=== PATIENT | female | born 1985 | race Caucasian/White ===

== ENCOUNTER 2025-09-23 17:18 | Emergency (ER) | payer OTHER, SELFPAY ==
--- OUTSIDE RECORDS SUMMARY | 2025-09-22 09:30 | XMS_ITS | Encounter Summary ---
Author Organization [facility] Address [address] [place] [address] Care Team Providers Care Home Care Giver Name Role Phone Viry Reyna MD Primary Care Provider [phone] Reason for Visit * Reason Comments vaginal bleeding Patient states she h as been having heavy bleeding for the last 3 weeks. Has been to the ER, was given meds and the meds made things worse, headaches, and such. Patient states she is still getting dizzy, and passing clots. Patient is scheduled for a procedure on Saturday with the SENIOR ENGINEERING MANAGER. Encounter Details Date Type Department Care Team (Late st Contact Info) Description 09/22/2025 9:30 AM RUBBER GOODS TESTER Office Visit [facility] [place] [address] [place] [address] Viry Reyna MD [address] [place] [address] Vaginal bleeding (Primary Dx); Acute blood loss anemia Social History Tobacco Use Types Packs/Day Years Used Date Smoking Tobacco: Former Cigarettes Q uit: 2020 Smokeless Tobacco: Never Alcohol Use Standard Drinks/Week Comments No 0 (1 standard drink = 0.6 oz pur e alcohol) Comments No Sex and Gender Information Value Date Recorded Sex Assigned at Not on file Legal Sex Female 3:28 AM RUBBER GOODS TESTER Gender Identity Not on file Sexual Orientation Not on file documented as of this encounter Last Filed Vital Signs Vital Sign Reading Time Taken Comments Blood Pressure 118/68 09/22/2025 9:23 AM RUBBER GOODS TESTER Pulse 61 09/22/2025 9:23 AM RUBBER GOODS TESTER Temperature 36.8 C (98.2 F) 09/22/2025 9:23 AM RUBBER GOODS TESTER Respiratory Rate 18 09/22/2025 9:23 AM RUBBER GOODS TESTER Oxygen Saturation 100% 09/22/2025 9:23 AM RUBBER GOODS TESTER Inhaled Oxygen Concentration - - Weight 88 kg (194 lb) 09/22/2025 9:23 AM RUBBER GOODS TESTER Height 162.6 cm (5' 4) 09/22/2025 9:23 AM RUBBER GOODS TESTER Body Mass Index 33.3 09/22/2025 9:23 AM RUBBER GOODS TESTER documented in this encounter Progress Notes * Viry Reyna MD - 09/22/2025 10:28 AM CST Depression Screen Positive: PHQ-2 score >= 3 or PHQ-9 score >= 9 PHQ-2 Total: 0 (09/22/2025 10:27 AM) PHQ-9 Total: 9 (09/22/2025 10:27 AM) DEPRESSION PLAN OF CARE- screen negative Positive scores attributed to symptoms likely secondary to anemia Will re evaluate in future when anemia is resolved ER GOODS TESTER * Viry Reyna MD - 09/22/2025 9:46 AM CST HISTORY OF PRESENT ILLNESS Emy Couch, a 40 y.o. female presents with a Chief Complaint of vaginal bleeding (Patient statesshe has been having heavy bleeding for the last 3 weeks. Has been to the ER, was given meds and themeds made things worse, headaches, and such. Patient states she is still getting dizzy, and passingclots. Patient is scheduled for a procedure on Saturday with the SENIOR ENGINEERING MANAGER.) Subjective HPI C/o weakness, fatigue, IBARRA- heavy periods with ongoing vaginal bleeding since 09/07 Going through 6-8 heavy/overnight pads each day/night. Notes clots. Presented to ER [facility] 09/13- US pelvis US- unremarkable: IMPRESSION: PROBABLE DEBRIS WITHIN THE ENDOMETRIAL CANAL FROM THE VAGINAL BLEEDING. NO DEFINITE UTERINE OR ENDOMETRIAL MASS. IF SYMPTOMS PERSIST, OR CONCERN WARRANTS, DIRECT ENDOMETRIAL INSPECTION AND POTENTIAL SAMPLING MAY BE INDICATED. OTHERWISE UNREMARKABLE TRANSABDOMINAL AND TRANSVAGINAL ULTRASOUND OF THE PELVIS. Lab noted anemia- 8.3/25.9 MCV 81.4 She was discharged with PRESCRIPTION for iron 325 mg qod, Provera 10 mg daily and with a scheduled appointment with SENIOR ENGINEERING MANAGER office following day SENIOR ENGINEERING MANAGER/CAFETERIA SERVER- examined her, change PRESCRIPTION to [place] and scheduled her for a D & C early next week. REVIEW OF SYSTEMS Review of Systems Constitutional: Positive for fatigue. Negative for fever. Respiratory: Positive for shortness of breath (with exertion). Cardiovascular: Negative for chest pain, palpitations and leg swelling. Gastrointestinal: Positive for abdominal pain (cramping intermittently). Genitourinary: Positive for vaginal bleeding. Neurological: Negative for weakness and light-headedness. Objective PHYSICAL EXAM BP 118/68 (BP Location: Right arm, Patient Position (BP): Sitting, BP Cuff Size: Adult) Pulse 61 Temp 98.2 ??F (36.8 ??C) (Tympanic) Resp 18 Ht 5' 4 (1.626 m) Wt 88 kg (194 lb) LMP 09/13/2025 (Approximate) SpO2 100% BMI 33.30 kg/m?? Physical Exam Constitutional: General: She is not in acute distress. Eyes: General: No scleral icterus. Cardiovascular: Rate and Rhythm: Normal rate and regular rhythm. Heart sounds: Normal heart sounds. Pulmonary: Effort: Pulmonary effort is normal. No respiratory distress. Breath sounds: Normal breath sounds. No wheezing or rales. Abdominal: General: There is no distension. Skin: Coloration: Skin is not jaundiced. Neurological: General: No focal deficit present. Mental Status: She is alert and oriented to person, place, and time. Procedures Assessment ASSESSMENT and PLAN: ICD-10-CM ICD-9-CM 1. Vaginal bleeding N93.9 623.8 D& C scheduled for 2. Acute blood loss anemia D62 285.1 Continue with iron- if able, take on empty stomach with vit C sourc for best absorption CBC WITH DIFFERENTIAL IRON, TIBC, AND PERCENT SATURATION FERRITIN CBC WITH DIFFERENTIAL FERRITIN IRON, TIBC, AND PERCENT SATURATION ER GOODS TESTER documented in this encounter Plan of Treatment Upcoming Encounters Date Type Department Care Team (Late st Contact Info) Description 10/04/2025 7:30 AM RUBBER GOODS TESTER Office Visit [facility] [address] [place] [address] Tarsha Watkins, ANP [address] [place] [address] 11/22/2025 7:30 AM RUBBER GOODS TESTER Office Visit [facility] [address] [place] [address] Tarsha Watkins, ROCCO [address] [place] [address] documented as of this encounter Procedures Procedure Name Priority Date/Time Associated Diagnosis Comments IRON, TIBC, AND PERCENT SATURATION Routine 09/22/2025 10:18 AM RUBBER GOODS TESTER Acute blood loss anemia CBC WITH DIFFERENTIAL Routine 09/22/2025 10:18 AM RUBBER GOODS TESTER Acute blood loss anemia FERRITIN Routine 09/22/2025 10:18 AM RUBBER GOODS TESTER Acute blood loss anemia documented in this encounter Results * FERRITIN (09/22/2025 10:18 AM RUBBER GOODS TESTER) FERRITIN 55 16 - 154 ng/mL [facility] Comment: Test Performed at: [facility] [address] [place] [address] Kiersten Ruelas MD Blood 09/22/2025 10:1 8 AM RUBBER GOODS TESTER 09/22/2025 10:02 PM RUBBER GOODS TESTER us Viry Reyna MD CHEMISTRY ORDERABLES Final Res ult [facility] [phone] [facility] [address] [place] [address] * (ABNORMAL) IRON, TIBC, AND PERCENT SATURATION (09/22/2025 10:18 AM RUBBER GOODS TESTER) [facility] IRON 20(L) 40 - 190 mcg/dL [facility] TIBC 362 250 - 450 mcg/dL (calc) [facility] IRON % SATURATION 6(L) 16 - 45 % (calc) [facility] Comment: Test Performed at: [address] [address] Kiersten Ruelas MD Blood 09/22/2025 10:1 8 AM RUBBER GOODS TESTER 09/22/2025 10:02 PM RUBBER GOODS TESTER us Viry Reyna MD CHEMISTRY ORDERABLES Final Res ult [facility] [phone] [address] * (ABNORMAL) CBC WITH DIFFERENTIAL (09/22/2025 10:18 AM RUBBER GOODS TESTER) [facility] WBC 4.0 3.8 - 10.8 Thousand/ uL [facility] RBC 2.52(L) 3.80 - 5.10 Million/u L [facility] HEMOGLOBIN 6.3(L) 11.7 - 15.5 g/dL [facility] Comment: Verified by repeat analysis. HEMATOCRIT 21.6(L) 35.0 - 45.0 % [facility] MCV 85.7 80.0 - 100.0 fL [facility] MCH 25.0(L) 27.0 - 33.0 pg [facility] MCHC 29.2(L) 32.0 - 36.0 g/dL [facility] Comment: For adults, a slight decrease in the calculated MCHC value (in the range of 30 to 32 g/dL) is most likely not clinically significant; however, it should be interpreted with caution in correlation with other red cell parameters and the patient's clinical condition. RDW 14.5 11.0 - 15.0 % [facility] PLATELETS 303 140 - 400 Thousand/ uL [facility] MPV 11.0 7.5 - 12.5 fL [facility] NEUTROPHIL ABSOLUTE 2,736 1,500 - 7,800 cells/uL [facility] LYMPHOCYTE ABSOLUTE 920 850 - 3,900 cells/uL [facility] MONOCYTE ABSOLUTE 292 200 - 950 cells/uL [facility] EOSINOPHIL ABSOLUTE 40 15 - 500 cells/uL [facility] BASOPHILS ABSOLUTE 12 0 - 200 cells/uL [facility] NEUTROPHIL 68.4 % [facility] LYMPHOCYTES 23.0 % [facility] MONOCYTE 7.3 % [facility] EOSINOPHILS 1.0 % [facility] BASOPHILS 0.3 % [facility] COMMENT HEMATOLOGY [facility] Comment: Review of peripheral smear confirms automated results. Anisocytosis 1 + Ovalocytes 1 + Polychromasia 1 + Review of the peripheral smear reveals adequate numbers of platelets. Test Performed at: [place] [address] [place] [address] Kiersten Becerra Blood 09/22/2025 10:1 8 AM RUBBER GOODS TESTER 09/22/2025 10:02 PM RUBBER GOODS TESTER us Viry Reyna MD HEMATOLOGY ORDERABLES Final Re sult [facility] [phone] [facility] [address] [place] [address] documented in this encounter Visit Diagnoses Diagnosis Vaginal bleeding- Primary Other specified noninflammatory disorder of vagina Acute blood loss anemia Acute posthemorrhagic anemia documented in this encounter Care Teams Home Care Giver Relationship Specialty Start Date End Date iVry Reyna MD [address] [place] [address] [place] [address] PCP - General Internal Medicine 04/22/24 documented as of this encounter
[2025-09-23] VITALS (20 sets, daily range): BP systolic 102–120; BP diastolic 54–78; PULSE 73–87; RESP 12–20; TEMP 36.7–37.3; O2SAT 97–100
--- NOTE | 2025-09-23 17:56 | ED.RECABL ---
HPI - Recheck/Abnormal Lab/Rx General Chief Complaint: Recheck/Abnormal Lab/Rx <Tracy Decker PA-C - Last Filed: 10/02/25 15:08> Stated Complaint: low hgb they said they were at 6 <Tracy Decker PA-C - Last Filed: 10/02/25 15:08> Time Seen by Provider: 09/23/25 17:56 <Tracy Decker PA-C - Last Filed: 10/02/25 15:08> Focused HPI: This is a 40 year old female that presents to the ER for low hemoglobin. Reports her hemoglobin is 6.3. This was done outpatient through her PCP. Was called today and told to come to the ER. Reports vaginal bleeding ongoing over the last couple of weeks. GENERAL: Well-appearing, well-nourished, and in no acute distress. HEAD: Normocephalic, atraumatic. CHEST: Clear to auscultation. ?No respiratory distress. HEART: Regular rate and rhythm.? NEURO: ?Alert and oriented x3. Patient screened in triage and initial orders placed.? ?Additional care and disposition to be based upon?diagnostic testing and treatment. <Tracy Decker PA-C - Last Filed: 10/02/25 15:08> History of Present Illness HPI narrative: 40-year-old female present to emergency department for evaluation for a low hemoglobin. Patient is currently going to have a D&C on 10/[address] Coreas. Patient had follow-up with her primary care physician due to her having issues with exertional fatigue. Patient had outpatient labs that showed a hemoglobin of 6.0. On re-evaluation today her hemoglobin is 5.8. Patient was started on TXA for approximately 5 days and patient is on day 2. Patient states the bleeding is still continuing but has improved significantly. <Trace Almonte MD - Last Filed: 09/23/25 22:45> Related Data Home Medications: Home Medications ?Medication ?Instructions ?Recorded ?Confirmed ?Last Taken ?Type bupropion HCl 300 mg 24 hr tablet, 300 mg PO DAILY 09/22/25 09/22/25 Unknown History extended release ferrous sulfate 325 mg (65 mg 325 mg PO EVERY OTHER DAY 09/22/25 09/22/25 Unknown History iron) tablet (FeroSul) levothyroxine 88 mcg tablet 88 mcg PO DAILY 09/22/25 09/22/25 Unknown History tirzepatide (weight loss) 5 mg/0.5 5 mg subcut WEEKLY 09/22/25 09/22/25 09/20/25 History mL subcutaneous pen injector (Zepbound) tranexamic acid 650 mg tablet 1,300 mg PO TID 09/22/25 09/22/25 09/22/25 History <Tracy Decker PA-C - Last Filed: 10/02/25 15:08> Allergies/Adverse Reactions: Allergies Allergy/AdvReac Type Severity Reaction Status Date / Time No Known Allergies Allergy Verified 09/23/25 17:42 <Tracy Decker PA-C - Last Filed: 10/02/25 15:08> Review of Systems Review of Systems: All systems reviewed & are unremarkable except as noted in HPI and below <Trace Almonte MD - Last Filed: 09/23/25 22:45> [facility] Social History Social History: Social History Smoking packs per day: 1.5 Smoking cigarettes per day: 30.0 Years smoked: 4.5 Smoking pack-years: 6.75 Smoking status: Former smoker Smoking end date: 06/11/20 Living arrangements: with friend(s) Additional living arrangements comments: S/O Spiritual care concerns: No <Tracy Decker PA-C - Last Filed: 10/02/25 15:08> Exam Narrative: APPEARANCE: Well appearing, no pain, no distress, well-nourished. HEAD: normocephalic, atraumatic. EYES: PERRLA/EOMI, conjunctivae clear. NOSE: Normal no drainage EARS:TMS clear with good light reflex. THROAT: Pharynx clear, no exudate. NECK: Supple. No adenopathy, no masses. RESPIRATORY: Airway patent, respirations nonlabored. Clear to auscultation bilaterally, no rales, rhonchi, wheezing. CARDIOVASCULAR: Regular rate and rhythm without murmurs rubs or gallops. ABDOMINAL: Soft, nontender, nondistended, normal bowel sounds MUSCULOSKELETAL: Moves all extremities. Strength/ROM intact, No edema, No calf tenderness. NEURO: Alert. Cranial nerves II through XII intact. Good gait. Good coordination SKIN: Warm, dry. Normal Color <Trace Almonte MD - Last Filed: 09/23/25 22:45> Course Vital Signs Vital signs: Vital Signs Temperature 98.0 F 09/23/25 17:38 Pulse Rate 79 09/23/25 17:38 Respiratory Rate 20 09/23/25 17:38 Blood Pressure 120/69 09/23/25 17:38 Pulse Oximetry 100 09/23/25 17:38 Oxygen Delivery Room Air 09/23/25 17:38 Temperature 98.7 F 09/23/25 23:36 Pulse Rate 77 09/23/25 23:36 Respiratory Rate 18 09/23/25 23:36 Blood Pressure 119/56 L 09/23/25 23:36 Pulse Oximetry 98 09/23/25 23:36 Oxygen Delivery Autopap 09/23/25 19:36 <Tracy Decker PA-C - Last Filed: 10/02/25 15:08> Vital Signs Temperature 98.0 F 09/23/25 17:38 Pulse Rate 79 09/23/25 17:38 Respiratory Rate 20 09/23/25 17:38 Blood Pressure 120/69 09/23/25 17:38 Pulse Oximetry 100 09/23/25 17:38 Oxygen Delivery Room Air 09/23/25 17:38 Temperature 98.7 F 09/23/25 23:36 Pulse Rate 77 09/23/25 23:36 Respiratory Rate 18 09/23/25 23:36 Blood Pressure 119/56 L 09/23/25 23:36 Pulse Oximetry 98 09/23/25 23:36 Oxygen Delivery Autopap 09/23/25 19:36 <Trace Almonte MD - Last Filed: 09/23/25 22:45> MDM - Recheck/Abnormal Lab/Rx MDM Narrative Medical decision making narrative: [age] year Old female present to the emergency department for evaluation for anemia. Case was discussed with OB Gyne and they are comfortable with patient having close follow-up as outpatient. Patient was treated with 2 units packed red blood. The patient family were updated the results of the workup planned for transfusion. All questions concerns were addressed. Critical Care Procedure Note Authorized and Performed by: Trace Almonte Total critical care time: Approximately 36 minutes Due to a high probability of clinically significant, life threatening deterioration, the patient required my highest level of preparedness to intervene emergently and I personally spent this critical care time directly and personally managing the patient. This critical care time included obtaining a history; examining the patient; pulse oximetry; ordering and review of studies; arranging urgent treatment with development of a management plan; evaluation of patient's response to treatment; frequent reassessment; and, discussions with other providers. This critical care time was performed to assess and manage the high probability of imminent, life-threatening deterioration that could result in multi-organ failure. It was exclusive of separately billable procedures and treating other patients and teaching time. Please see MDM section and the rest of the note for further information on patient assessment and treatment. <Trace Almonte MD - Last Filed: 09/23/25 22:45> Lab Data Attestation: I reviewed the patient's lab results. <Trace Almonte MD - Last Filed: 09/23/25 22:45> Result diagrams: 09/23/25 18:04 09/23/25 18:04 <Tracy Decker PA-C - Last Filed: 10/02/25 15:08> Labs: Lab Results 09/23/25 09/23/25 Range/Units 18:04 19:13 WBC 3.7 L (4.5-10.0) K/mm3 RBC 2.38 L (4.2-5.4) M/mm3 Hgb 5.9 L* (12.0-15.0) g/dL Hct 20.1 L* (37.0-47.0) % MCV 84.5 (80-100) fl MCH 24.8 L (26-34) pg MCHC 29.4 L (32-36) g/dl RDW 15.8 H (11.5-14.5) % Plt Count 262 (150-375) k/mm3 MPV 9.6 (7.4-10.4) fl Immature Gran % (Auto) 1.4 H (0-0.5) % Neut % (Auto) 63.6 (45.5-73.1) % Lymph % (Auto) 27.4 (18.3-44.2) % [place] % (Auto) 5.4 (2.6-8.5) % Eos % (Auto) 1.9 (0-4.4) % Baso % (Auto) 0.3 (0.2-1.2) % Lymph # (Auto) 1.01 (0.9-3.2) K/mm3 [place] # (Auto) 0.2 (0.1-0.6) K/mm3 Eos # (Auto) 0.1 (0-0.3) K/mm3 Baso # (Auto) 0.0 (0.0-0.1) K/mm3 Abs Immat Gran (auto) 0.05 H (0.00-0.031) K/mm3 Absolute Neuts (auto) 2.3 (1.3-6.7) K/mm3 Absolute Nucleated RBC 0.050 H (0.0-0.012) K/mm3 Band Neutrophils % Not Reportable Nucleated RBC % 1.4 H (0.0-0.2) % Platelet Estimate Adequate (Adequate) Polychromasia 1+ Hypochromasia 1+ Ovalocytes 1+ Schistocytes None seen PT 13.7 (11.1-14.7) Seconds INR 1.1 APTT 27.9 (22.3-36.8) Seconds Sodium 139 (137-145) mmol/L Potassium 3.8 (3.4-5.0) mmol/L Chloride 107 (98-107) mmol/L Carbon Dioxide 26 (22-30) mmol/L Anion Gap 6 (4-12) mmol/L BUN 8 (7-17) mg/dL Creatinine 0.74 (0.7-1.0) mg/dL Estim Creat Clear Calc 93 ml/min Estimated GFR > 60 (59 - ) Glucose 88 (65-110) mg/dL Calcium 8.2 L (8.4-10.2) mg/dL Iron 41 (37-170) ug/dL TIBC 362 (261-462) ug/dL % Saturation 11 L (20-50) % Total Bilirubin 0.3 (0.2-1.3) mg/dL AST 19 (14-36) U/L ALT 17 (6-35) U/L Alkaline Phosphatase 100 (38-126) U/L Total Protein 6.4 (6.3-8.2) g/dL Albumin 3.6 (3.5-5.1) g/dL Blood Type O Positive Antibody Screen Negative Crossmatch See Detail <Tracy Decker PA-C - Last Filed: 10/02/25 15:08> Lab Results 09/23/25 09/23/25 Range/Units 18:04 19:13 WBC 3.7 L (4.5-10.0) K/mm3 RBC 2.38 L (4.2-5.4) M/mm3 Hgb 5.9 L* (12.0-15.0) g/dL Hct 20.1 L* (37.0-47.0) % MCV 84.5 (80-100) fl MCH 24.8 L (26-34) pg MCHC 29.4 L (32-36) g/dl RDW 15.8 H (11.5-14.5) % Plt Count 262 (150-375) k/mm3 MPV 9.6 (7.4-10.4) fl Immature Gran % (Auto) 1.4 H (0-0.5) % Neut % (Auto) 63.6 (45.5-73.1) % Lymph % (Auto) 27.4 (18.3-44.2) % [place] % (Auto) 5.4 (2.6-8.5) % Eos % (Auto) 1.9 (0-4.4) % Baso % (Auto) 0.3 (0.2-1.2) % Lymph # (Auto) 1.01 (0.9-3.2) K/mm3 [place] # (Auto) 0.2 (0.1-0.6) K/mm3 Eos # (Auto) 0.1 (0-0.3) K/mm3 Baso # (Auto) 0.0 (0.0-0.1) K/mm3 Abs Immat Gran (auto) 0.05 H (0.00-0.031) K/mm3 Absolute Neuts (auto) 2.3 (1.3-6.7) K/mm3 Absolute Nucleated RBC 0.050 H (0.0-0.012) K/mm3 Band Neutrophils % Not Reportable Nucleated RBC % 1.4 H (0.0-0.2) % Platelet Estimate Adequate (Adequate) Polychromasia 1+ Hypochromasia 1+ Ovalocytes 1+ Schistocytes None seen PT 13.7 (11.1-14.7) Seconds INR 1.1 APTT 27.9 (22.3-36.8) Seconds Sodium 139 (137-145) mmol/L Potassium 3.8 (3.4-5.0) mmol/L Chloride 107 (98-107) mmol/L Carbon Dioxide 26 (22-30) mmol/L Anion Gap 6 (4-12) mmol/L BUN 8 (7-17) mg/dL Creatinine 0.74 (0.7-1.0) mg/dL Estim Creat Clear Calc 93 ml/min Estimated GFR > 60 (59 - ) Glucose 88 (65-110) mg/dL Calcium 8.2 L (8.4-10.2) mg/dL Iron 41 (37-170) ug/dL TIBC 362 (261-462) ug/dL % Saturation 11 L (20-50) % Total Bilirubin 0.3 (0.2-1.3) mg/dL AST 19 (14-36) U/L ALT 17 (6-35) U/L Alkaline Phosphatase 100 (38-126) U/L Total Protein 6.4 (6.3-8.2) g/dL Albumin 3.6 (3.5-5.1) g/dL Blood Type O Positive Antibody Screen Negative Crossmatch See Detail <Trace Almonte MD - Last Filed: 09/23/25 22:45> Critical Care Time Critical Care Time Critical Care Time: Yes <Tracy Decker PA-C - Last Filed: 10/02/25 15:08> Total Critical Care Time: 36 <Tracy Decker PA-C - Last Filed: 10/02/25 15:08> Discharge Plan Discharge Clinical Impression: Anemia Qualifiers: Anemia type: unspecified type Qualified Code(s): D64.9 - Anemia, unspecified <Tracy Decker PA-C - Last Filed: 10/02/25 15:08> Patient Disposition: Home <Tracy Decker PA-C - Last Filed: 10/02/25 15:08> Condition: Stable <SACHIN Walls Last Filed: 10/02/25 15:08> Instructions: Antibiotic Form, Abnormal (Dysfunctional) Uterine Bleeding (ED), Blood Transfusion (DC) <Tracy Decker PA-C - Last Filed: 10/02/25 15:08> Additional Instructions: A medications as directed. Continue to have close follow-up with auto service instructor. If you have any worsening symptoms please call or return to the emergency department. <Tracy Decker PA-C - Last Filed: 10/02/25 15:08> Patient Language: Burkinan <Tracy Decker PA-C - Last Filed: 10/02/25 15:08> Prescriptions: No Action bupropion HCl 300 mg tablet extended release 24 hr 300 mg PO DAILY levothyroxine 88 mcg tablet 88 mcg PO DAILY tranexamic acid 650 mg tablet 1,300 mg PO TID Patient Comments: will finish on 09/26/25 ferrous sulfate [FeroSul] 325 mg (65 mg iron) tablet 325 mg PO EVERY OTHER DAY Zepbound 5 mg/0.5 mL pen injector 5 mg SUBCUT WEEKLY Patient Comments: takes on mondays <Tracy Decker PA-C - Last Filed: 10/02/25 15:08> Follow-up/Referrals: Roland,Tarsha Marks APRN [Primary Care Provider, Unknown] Chloé Coreas MD [Physician, JACQUARD CARD CUTTER] <Tracy Decker PA-C - Last Filed: 10/02/25 15:08>
[2025-09-23 18:12] LABS: Immature Granulocyte Percent A 1.4 % (0-0.5); Lymphocytes Absolute Auto 1.01 K/mm3 (0.9-3.2); Mean Corpuscular HGB Conc 29.4 g/dl (32-36); Mean Corpuscular Hemoglobin 24.8 pg (26-34); Mean Corpuscular Volume 84.5 fl (80-100); Nucleated Red Blood Cells Absolute Auto 0.050 K/mm3 (0.0-0.012); Nucleated Red Blood Cells Perc 1.4 % (0.0-0.2); Platelet Count Result 262 k/mm3 (150-375); Red Blood Count 2.38 M/mm3 (4.2-5.4); White Blood Count 3.7 K/mm3 (4.5-10.0)
[2025-09-23 18:25] LABS: Hematocrit 20.1 % (37.0-47.0); Hemoglobin 5.9 g/dL (12.0-15.0); INR 1.1; Partial Thromboplastin Time 27.9 Seconds (22.3-36.8); Prothrombin Time 13.7 Seconds (11.1-14.7)
[2025-09-23 18:26] LABS: Alanine Aminotransferase 17 U/L (6-35); Albumin Level 3.6 g/dL (3.5-5.1); Alkaline Phosphatase 100 U/L (38-126); Anion Gap 6 mmol/L (4-12); Aspartate Amino Transferase 19 U/L (14-36); Bilirubin,Total 0.3 mg/dL (0.2-1.3); Blood Urea Nitrogen 8 mg/dL (7-17); Calcium 8.2 mg/dL (8.4-10.2); Carbon Dioxide 26 mmol/L (22-30); Chloride 107 mmol/L (98-107); Estimated CRCL calculation 93 ml/min; Estimated Glomerular Filt Rate > 60; Glucose 88 mg/dL (65-110); Potassium 3.8 mmol/L (3.4-5.0); Sodium 139 mmol/L (137-145); Total Protein 6.4 g/dL (6.3-8.2)
[2025-09-23 18:28] LABS: Hypochromasia 1+; Polychromasia 1+
[2025-09-23] MEDS: SODIUM CHLORIDE 0.9% IV 250 ML 30 ML IV CONT ×2 (18:28→20:00)
[2025-09-23 18:29] LABS: Ovalocytes 1+; Schistocytes None Seen
--- NOTE | 2025-09-23 18:44 | ECG_ITS ---
Test Date: 2025-09-23 20:36:19 Measurements Intervals [employer] Rate: 75 P: 37 NM: 182 QRS: 23 QRSD: 84 T: 15 QT: 370 QTc: 413 Interpretive Statements SINUS RHYTHM NORMAL ELECTROCARDIOGRAM No previous ECG available for comparison Electronically Signed On 09-24-2025 13:04:42 NUCLEAR PHYSICIAN by Dewey Viveros M.D.
--- NOTE | 2025-09-23 18:47 | ED_ITS ---
HPI - General Adult General Chief complaint: Recheck/Abnormal Lab/Rx Stated complaint: low hgb they said they were at 6 Time Seen by Provider: 09/23/25 17:56 History of Present Illness HPI narrative: 40-year-old female present to emergency department for evaluation for a low hemoglobin. Patient is currently going to have a D&C on 10/[address] Coreas. Patient had follow-up with her primary care physician due to her having issues with exertional fatigue. Patient had outpatient labs that showed a hemoglobin of 6.0. On re-evaluation today her hemoglobin is 5.8. Patient was started on TXA for approximately 5 days and patient is on day 2. Patient states the bleeding is still continuing but has improved significantly. Related Data Home Medications ?Medication ?Instructions ?Recorded ?Confirmed ?Last Taken ?Type bupropion HCl 300 mg 24 hr tablet, 300 mg PO DAILY 11/0409/22/25 Unknown History extended release ferrous sulfate 325 mg (65 mg 325 mg PO EVERY OTHER DA Y 09/22/25 09/22/25 Unknown History iron) tablet (FeroSul) levothyroxine 88 mcg tablet 88 mcg PO DAILY 09/22/25 1 11/22/24 Unknown History tirzepatide (weight loss) 5 mg/0.5 5 mg subcut WEEKLY 09/22/25 09/22/25 09/20/25 History mL subcutaneous pen injector (Zepbound) tranexamic acid 650 mg tablet 1,300 mg PO TID 09/22/25 09/22/25 09/22/25 History Allergies Allergy/AdvReac Type Severity Reaction Status Date / Time No Known Allergies Allergy Verified 09/23/25 17:42 Review of Systems 2 Review of Systems: All systems reviewed & are unremarkable except as noted in HPI and below PMFSH Social History Social History Smoking packs per day: 1.5 Smoking cigarettes per day: 30.0 Years smoked: 4.5 Smoking pack-years: 6.75 Smoking status: Former smoker Smoking end date: 06/11/20 Living arrangements: with friend(s) Additional living arrangements comments: S/O Spiritual care concerns: No Exam 2 Narrative: APPEARANCE: Well appearing, no pain, no distress, well-nourished. HEAD: normocephalic, atraumatic. EYES: PERRLA/EOMI, conjunctivae clear. NOSE: Normal no drainage EARS:TMS clear with good light reflex. THROAT: Pharynx clear, no exudate. NECK: Supple. No adenopathy, no masses. RESPIRATORY: Airway patent, respirations nonlabored. Clear to auscultation bilaterally, no rales, rhonchi, wheezing. CARDIOVASCULAR: Regular rate and rhythm without murmurs rubs or gallops. ABDOMINAL: Soft, nontender, nondistended, normal bowel sounds MUSCULOSKELETAL: Moves all extremities. Strength/ROM intact, No edema, No calf tenderness. NEURO: Alert. Cranial nerves II through XII intact. Good gait. Good coordination SKIN: Warm, dry. Normal Color Course Vital Signs Vital signs: Vital Signs Temperature 98.0 F 09/23/25 17:38 Pulse Rate 79 09/23/25 17:38 Respiratory Rate 20 09/23/25 17:38 Blood Pressure 120/69 09/23/25 17:38 Pulse Oximetry 100 09/23/25 17:38 Oxygen Delivery Room Air 09/23/25 17:38 Temperature 98.0 F 09/23/25 17:38 Pulse Rate 79 09/23/25 17:38 Respiratory Rate 20 09/23/25 17:38 Blood Pressure 120/69 09/23/25 17:38 Pulse Oximetry 100 09/23/25 17:38 Oxygen Delivery Room Air 09/23/25 17:38 Medical Decision Making MDM Narrative Medical decision making narrative: 40-year-old female present to the emergency department for evaluation for anemia secondary to heavy vaginal bleeding. Patient is currently following up with OB Gyne for this. Patient was treated with 2 units of packed red blood cells. Vital Signs Vital Signs: Vital Signs Temperature 98.0 F 09/23/25 17:38 Pulse Rate 79 09/23/25 17:38 Respiratory Rate 20 09/23/25 17:38 Blood Pressure 120/69 09/23/25 17:38 Pulse Oximetry 100 09/23/25 17:38 Oxygen Delivery Room Air 09/23/25 17:38 Temperature 98.0 F 09/23/25 17:38 Pulse Rate 79 09/23/25 17:38 Respiratory Rate 20 09/23/25 17:38 Blood Pressure 120/69 09/23/25 17:38 Pulse Oximetry 100 09/23/25 17:38 Oxygen Delivery Room Air 09/23/25 17:38 Lab Data 09/23/25 18:04 09/23/25 18:04 Labs: Lab Results 09/23/25 Range/Units 18:04 WBC 3.7 L (4.5-10.0) K/mm3 RBC 2.38 L (4.2-5.4) M/mm3 Hgb 5.9 L* (12.0-15.0) g/dL Hct 20.1 L* (37.0-47.0) % MCV 84.5 (80-100) fl MCH 24.8 L (26-34) pg MCHC 29.4 L (32-36) g/dl RDW 15.8 H (11.5-14.5) % Plt Count 262 (150-375) k/mm3 MPV 9.6 (7.4-10.4) fl Immature Gran % (Auto) 1.4 H (0-0.5) % Neut % (Auto) 63.6 (45.5-73.1) % Lymph % (Auto) 27.4 (18.3-44.2) % [place] % (Auto) 5.4 (2.6-8.5) % Eos % (Auto) 1.9 (0-4.4) % Baso % (Auto) 0.3 (0.2-1.2) % Lymph # (Auto) 1.01 (0.9-3.2) K/mm3 [place] # (Auto) 0.2 (0.1-0.6) K/mm3 Eos # (Auto) 0.1 (0-0.3) K/mm3 Baso # (Auto) 0.0 (0.0-0.1) K/mm3 Abs Immat Gran (auto) 0.05 H (0.00-0.031) K/mm3 Absolute Neuts (auto) 2.3 (1.3-6.7) K/mm3 Absolute Nucleated RBC 0.050 H (0.0-0.012) K/mm3 Band Neutrophils % Not Reportable Nucleated RBC % 1.4 H (0.0-0.2) % Platelet Estimate Adequate (Adequate) Polychromasia 1+ Hypochromasia 1+ Ovalocytes 1+ Schistocytes None seen PT 13.7 (11.1-14.7) Seconds INR 1.1 APTT 27.9 (22.3-36.8) Seconds Sodium 139 (137-145) mmol/L Potassium 3.8 (3.4-5.0) mmol/L Chloride 107 (98-107) mmol/L Carbon Dioxide 26 (22-30) mmol/L Anion Gap 6 (4-12) mmol/L BUN 8 (7-17) mg/dL Creatinine 0.74 (0.7-1.0) mg/dL Estim Creat Clear Calc 93 ml/min Estimated GFR > 60 (59 - ) Glucose 88 (65-110) mg/dL Calcium 8.2 L (8.4-10.2) mg/dL Total Bilirubin 0.3 (0.2-1.3) mg/dL AST 19 (14-36) U/L ALT 17 (6-35) U/L Alkaline Phosphatase 100 (38-126) U/L Total Protein 6.4 (6.3-8.2) g/dL Albumin 3.6 (3.5-5.1) g/dL Discharge Plan Discharge Patient Language: Ukrainian Prescriptions: No Action bupropion HCl 300 mg tablet extended release 24 hr 300 mg PO DAILY levothyroxine 88 mcg tablet 88 mcg PO DAILY tranexamic acid 650 mg tablet 1,300 mg PO TID Patient Comments: will finish on 09/26/25 ferrous sulfate [FeroSul] 325 mg (65 mg iron) tablet 325 mg PO EVERY OTHER DAY Zepbound 5 mg/0.5 mL pen injector 5 mg SUBCUT WEEKLY Patient Comments: takes on mondays Follow-up/Referrals: Roland,Tarsha Marks APRN [Primary Care Provider, Unknown]
--- OUTSIDE RECORDS SUMMARY | 2025-09-23 18:52 | XMS_ITS | Encounter Summary ---
Author Organization [facility] Address [address] [place] [address] Care Team Providers Care Making Machine Operator Name Role Phone Viry Reyna MD Primary Care Provider [phone] Encounter Details Date Type Department Care Team (Latest Contact Info) Description 02/22/2003 Outpatient Historical [facility], [address] Angelo Quiorga MD [address] [facility] [address] [place] [id number] SCREENING MAL NEOP-CERVIX (Primary Dx) Social History Tobacco Use Types Packs/Day Years Used Date Smoking Tobacco: Never Assessed Comments Unknown Sex and Gender Information Value Date Recorded Sex Assigned at Not on file Legal Sex Female 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 DOOR INSTALLER Gender Identity Not on file Sexual Orientation Not on file documented as of this encounter Plan of Treatment Upcoming Encounters Date Type Department Care Team (Late st Contact Info) Description 10/04/2025 7:30 AM GARAGE DOOR INSTALLER Office Visit [facility] [employer] [address] [place] [address] Tarsha Watkins ANP [address] [place] [address] 11/22/2025 7:30 AM GARAGE DOOR INSTALLER Office Visit [facility] [employer] [place] [address] [place] [address] Tarsha Watkins, ROCCO [address] [place] [address] documented as of this encounter Visit Diagnoses Diagnosis Screening for malignant neoplasm of the cervix- Primary documented in this encounter Care Teams Making Machine Operator Relationship Specialty Start Date End Date Viry Reyna MD [address] [place] [address] PCP - General Internal Medicine 04/22/24 documented as of this encounter
--- OUTSIDE RECORDS SUMMARY | 2025-09-23 18:52 | XMS_ITS | Encounter Summary ---
Author Organization [facility] Address [address] [place] [address] Care Team Providers Care Dimension Stone Quarry Supervisor Name Role Phone Viry Reyna MD Primary Care Provider [phone] Encounter Details Date Type Department Care Team (Late st Contact Info) Description 12/31/2001 Outpatient Historical [facility] [address] [place] [address] Quan Baca MD NO ADDRESS ON FILE Social History Tobacco Use Types Packs/Day Years Used Date Smoking Tobacco: Never Assessed Comments Unknown Sex and Gender Information Value Date Recorded Sex Assigned at Not on file Legal Sex Female 3:28 AM AMBULATORY CARE NURSE Gender Identity Not on file Sexual Orientation Not on file documented as of this encounter Plan of Treatment Upcoming Encounters Date Type Department Care Team (Late st Contact Info) Description 10/04/2025 7:30 AM AMBULATORY CARE NURSE Office Visit [facility] at [facility] [address] [place] [address] Tarsha Watkins, ROCCO [address] [place] [address] 11/22/2025 7:30 AM AMBULATORY CARE NURSE Office Visit [facility] [address] [place] [address] Tarsha Watkins, ROCCO [address] [place] [address] documented as of this encounter Visit Diagnoses Not on filedocumented in this encounter Care Teams Dimension Stone Quarry Supervisor Relationship Specialty Start Date End Date Viry Reyna MD [address] [place] [address] PCP - General Internal Medicine 04/22/24 documented as of this encounter
--- OUTSIDE RECORDS SUMMARY | 2025-09-23 18:52 | XMS_ITS | Encounter Summary ---
Author Organization [facility] Address [address] [place] [address] Care Team Providers Care Telecommunications Sales Representative Name Role Phone Viry Reyna MD Primary Care Provider [phone] Encounter Details Date Type Department Care Team (Latest Contact Info) Description 02/04/2007 Outpatient Historical [facility], [place] Conversion, History Menstrual Disorder NEC (Primary Dx) Social History Tobacco Use Types Packs/Day Years Used Date Smoking Tobacco: Never Assessed Comments Unknown Sex and Gender Information Value Date Recorded Sex Assigned at Not on file Legal Sex Female 3:28 AM STEAMER TENDER Gender Identity Not on file Sexual Orientation Not on file documented as of this encounter Plan of Treatment Upcoming Encounters Date Type Department Care Team (Late st Contact Info) Description 10/04/2025 7:30 AM STEAMER TENDER Office Visit [facility] [address] [place] [address] Tarsha Watkins, ROCCO [address] [place] [address] 11/22/2025 7:30 AM STEAMER TENDER Office Visit [facility] [address] [place] [address] Tarsha Watkins, ROCCO [address] [place] [address] documented as of this encounter Procedures Procedure Name Priority Date/Time Associated Diagnosis Comments HSV TYPE 1 AND 2 IGG ANTIBODY Routine 02/04/2007 4:22 PM CDT HEPATITIS B SURFACE ANTIGEN Routine 02/04/2007 4:22 PM CDT CBC WITH DIFFERENTIAL Routine 02/04/2007 4:22 PM CDT CBC WITH DIFFERENTIAL Routine 02/04/2007 4:22 PM CDT CBC WITH DIFFERENTIAL Routine 02/04/2007 4:22 PM CDT PROLACTIN Routine 02/04/2007 4:22 PM CDT RPR Routine 02/04/2007 4:22 PM CDT TSH Routine 02/04/2007 4:22 PM CDT documented in this encounter Results * CBC WITH DIFFERENTIAL (02/04/2007 4:22 PM CDT) ANISOCYTOSIS Slight INTERFA CE SYSTEM POIKILOCYTES Moderate INTERFA CE SYSTEM MICROCYTES Moderate INTERFACE SYSTEM POLYCHROMASIA Slight INTERF JOHNATHAN SYSTEM OVALOCYTES Moderate INTERFACE SYSTEM 02/04/2007 4:22 PM CDT us History Conversion HEMATOLOGY ORDERABLES Edited INTERFACE SYSTEM Refer to clinic/hospital department * CBC WITH DIFFERENTIAL (02/04/2007 4:22 PM CDT) NEUTROPHILS 65 45 - 70 % INTERFAC E SYSTEM LYMPHOCYTES 28 16 - 45 % INTERFAC E SYSTEM MONOCYTES 6 3 - 13 % INTERFACE SYSTEM EOSINOPHILS 1 0 - 7 % INTERFAC E SYSTEM BASOPHILS 0 0 - 2 % INTERFACE SYSTEM NEUTROPHIL ABSOLUTE 2.74 1.90 - 7.00 K/uL INTERFACE SYSTEM LYMPHOCYTE ABSOLUTE 1.19 0.70 - 4.50 K/uL INTERFACE SYSTEM MONOCYTE ABSOLUTE 0.26 0.10 - 1.30 K/uL INTERFACE SYSTEM EOSINOPHIL ABSOLUTE 0.04 0.00 - 0.70 K/uL INTERFACE SYSTEM BASOPHILS ABSOLUTE 0.01 0.00 - 0.20 K/uL INTERFACE SYSTEM 02/04/2007 4:22 PM CDT us History Conversion HEMATOLOGY ORDERABLES Edited Performing Organization Address City/[facility] de Phone Number INTERFACE SYSTEM Refer to clinic/hospital department * (ABNORMAL) CBC WITH DIFFERENTIAL (02/04/2007 4:22 PM CDT) WBC 4.2 4.0 - 9.8 K/uL INTERFACE SYSTEM RBC 3.63(L) 3.90 - 4.90 M/uL INTERFACE SYSTEM HEMOGLOBIN 7.3(AA) 11.8 - 14.8 g/dL INTERFACE SYSTEM Comment: Verified by repeat analysis. Results called to Dr. Mendiola at 02/04/2007 7:47 PM and read back verified. HEMATOCRIT 25.8(L) 35.5 - 44.0 % INTERFACE SYSTEM MCV 71.1(L) 82.0 - 99.0 fL INTERFACE SYSTEM MCH 20.1(L) 27.2 - 32.6 pg INTERFACE SYSTEM MCHC 28.3(L) 31.5 - 35.5 % INTERFACE SYSTEM RDW 17.7(H) 11.5 - 14.5 % INTERFACE SYSTEM RDW-STDEV 46.7 37.1 - 48.7 fL INTERFACE SYSTEM PLATELETS 272 140 - 350 K/uL INTERFACE SYSTEM MPV 10.5 9.3 - 12.4 fL INTERFACE SYSTEM 02/04/2007 4:22 PM CDT us History Conversion HEMATOLOGY ORDERABLES Edited Performing Organization Address [facility] de Phone Number INTERFACE SYSTEM Refer to clinic/hospital department * TSH (02/04/2007 4:22 PM CDT) TSH 2.90 0.27 - 4.20 uU/mL INTERFACE SYSTEM 02/04/2007 4:22 PM CDT us History Conversion CHEMISTRY ORDERABLES Edited Performing Organization Address City/[facility] de Phone Number INTERFACE SYSTEM Refer to clinic/hospital department * PROLACTIN (02/04/2007 4:22 PM CDT) Pathologist [facility] PROLACTIN 14.59 ng/mL INTERFACE SYSTEM Comment: Female: Non- Reference Range 18 years - Adult = 4.79 - 23.30 ng/mL No Reference Range Established for patients less than 18 years of age..b r.br 02/04/2007 4:22 PM CDT us History Conversion CHEMISTRY ORDERABLES Edited Performing Organization Address [facility] Phone Number INTERFACE SYSTEM Refer to clinic/hospital department * RPR (02/04/2007 4:22 PM CDT) [facility] RPR NON-REACT SYED NON-REACT SYED INTERFACE SYSTEM Comment: Lab test performed by: [email or web address] [id number] [address] ESTUARDO ESPINAL 02/04/2007 4:22 PM CDT us History Conversion CHEMISTRY ORDERABLES Edited Performing Organization Address [facility] Phone Number INTERFACE SYSTEM Refer to clinic/hospital department * HEPATITIS B SURFACE ANTIGEN (02/04/2007 4:22 PM CDT) [facility] HEPATITIS B SURFACE AG NON-REACT SYED NON-REACT SYED INTERFACE SYSTEM Comment: Lab test performed by: [email or web address] [id number] [address] ESTUARDO ESPINAL 02/04/2007 4:22 PM CDT us History Conversion CHEMISTRY ORDERABLES Edited Performing Organization Address [facility] Phone Number INTERFACE SYSTEM Refer to clinic/hospital department * (ABNORMAL) HSV TYPE 1 AND 2 IGG ANTIBODY (02/04/2007 4:22 PM CDT) [facility] HSV TYPE 1 IGG >5.00(H) EIA Value INTER FACE SYSTEM HSV TYPE 2 IGG 0.15 EIA Value INTER FACE SYSTEM Comment: EIA VALUE EXPLANATION OF TEST RESULTS --------- < 0.90 NEGATIVE - NO HSV-1 OR HSV-2 IGG ANTIBODY DETECTED 0.90 - 1.10 EQUIVOCAL > 1.10 POSITIVE - HSV-1 OR HSV-2 IGG ANTIBODY DETECTED THIS ASSAY IS TYPE SPECIFIC AND WILL DIFFERENTIATE BETWEEN HSV-1 AND HSV-2 INFECTIONS. A SINGLE POSITIVE RESULT ONLY INDICATES PREVIOUS IMMUNOLOGIC EXPOSURE AND THE LEVEL OF ANTIBODY RESPONSE MAY NOT BE USED TO DETERMINE ACTIVE INFECTION OR DISEASE STAGE. THE TEST SHOULD BE REPEATED IN 4-6 WEEKS WHEN NEGATIVE OR EQUIVOCAL RESULTS ARE OBTAINED IN SUSPECTED EARLY HERPES SIMPLEX DISEASE. THE PERFORMANCE OF THIS ASSAY HAS NOT BEEN ESTABLISHED FOR PEDIATRIC POPULATIONS, FOR SCREENING, OR FOR THE TESTING OF IMMUNOCOMPROMISED PATIENTS. Lab test performed by: [email or web address] [id number] [address] ESTUARDO ESPINAL 02/04/2007 4:22 PM CDT us History Conversion CHEMISTRY ORDERABLES COM Edit ed INTERFACE SYSTEM Refer to clinic/hospital department documented in this encounter Visit Diagnoses Diagnosis Other disorder of menstruation and other abnormal bleeding from female genital tract- Primary documented in this encounter Care Teams Telecommunications Sales Representative Relationship Specialty Start Date End Date Viry Reyna MD [address] [place] [address] PCP - General Internal Medicine 04/22/24 documented as of this encounter
--- OUTSIDE RECORDS SUMMARY | 2025-09-23 18:52 | XMS_ITS | Encounter Summary ---
Author Organization [facility] Address [address] [place] [address] Care Team Providers Care Peripatologist Name Role Phone Viry Reyna MD Primary Care Provider [phone] Encounter Details Date Type Department Care Team (Latest Contact Info) Description 01/05/2003 Outpatient Historical [facility], [address], Olu Hedrick MD [address] [facility] [address] [place] [phone] LABORATORY EXAMINATION (Primary Dx) Social History Tobacco Use Types Packs/Day Years Used Date Smoking Tobacco: Never Assessed Comments Unknown Sex and Gender Information Value Date Recorded Sex Assigned at Not on file Legal Sex Female 3:28 AM GAS PROVER Gender Identity Not on file Sexual Orientation Not on file documented as of this encounter Plan of Treatment Upcoming Encounters Date Type Department Care Team (Late st Contact Info) Description 10/04/2025 7:30 AM GAS PROVER Office Visit [facility] [employer] [place] [address] [place] [address] Tarsha Watkins ANP [address] [place] [address] 11/22/2025 7:30 AM GAS PROVER Office [facility] [employer] [place] [address] [place] [address] Tarsha Watkins, ANP [address] [place] [address] documented as of this encounter Visit Diagnoses Diagnosis Laboratory examination- Primary documented in this encounter Care Teams Peripatologist Relationship Specialty Start Date End Date Viry Reyna MD [address] [place] [address] PCP - General Internal Medicine 04/22/24 documented as of this encounter
--- OUTSIDE RECORDS SUMMARY | 2025-09-23 18:52 | XMS_ITS | Encounter Summary ---
Author Organization [facility] Address [address] [place] [address] Care Team Providers Care Wheat And Oats Flake Miller Name Role Phone Viry Reyna MD Primary Care Provider [phone] Encounter Details Date Type Department Care Team (Late st Contact Info) Description 01/05/2003 Outpatient Historical [facility] [address] [place] [address] [place] MD [address] [place] [address] Social History Tobacco Use Types Packs/Day Years Used Date Smoking Tobacco: Never Assessed Comments Unknown Sex and Gender Information Value Date Recorded Sex Assigned at Not on file Legal Sex Female 3:28 AM WOOD EXPERIMENTAL MECHANIC Gender Identity Not on file Sexual Orientation Not on file documented as of this encounter Plan of Treatment Upcoming Encounters Date Type Department Care Team (Late st Contact Info) Description 10/04/2025 7:30 AM WOOD EXPERIMENTAL MECHANIC Office Visit [facility] [employer] [place] [address] [place] [address] Tarsha Watkins, ROCCO [address] [place] [address] 11/22/2025 7:30 AM WOOD EXPERIMENTAL MECHANIC Office Visit [facility] [employer] [place] [address] [place] [address] Tarsha Watkins, ANP [address] [place] [address] documented as of this encounter Visit Diagnoses Not on filedocumented in this encounter Care Teams Wheat And Oats Flake Miller Relationship Specialty Start Date End Date Viry Reyna MD [address] [place] [address] PCP - General Internal Medicine 04/22/24 documented as of this encounter
--- OUTSIDE RECORDS SUMMARY | 2025-09-23 18:52 | XMS_ITS | Encounter Summary ---
Author Organization [facility] Address [address] [place] [address] Care Team Providers Care Global Logistics Analyst Name Role Phone Viry Reyna MD Primary Care Provider [phone] Encounter Details Date Type Department Care Team (Late st Contact Info) Description 09/23/2025 Results Follow-Up [facility] [employer] [place] [address] Viry Reyna MD [address] [place] [address] CBC WITH DIFFERENTIAL, FERRITIN, IRON, TIBC, AND PERCENT SATURATION Social History Tobacco Use Types Packs/Day Years Used Date Smoking Tobacco: Former Cigarettes Q uit: 2020 Smokeless Tobacco: Never Alcohol Use Standard Drinks/Week Comments No 0 (1 standard drink = 0.6 oz pur e alcohol) Comments No Sex and Gender Information Value Date Recorded Sex Assigned at Not on file Legal Sex Female 3:28 AM SPORTS ANCHOR Gender Identity Not on file Sexual Orientation Not on file documented as of this encounter Miscellaneous Notes * Result Encounter Note - Evita Hill RN - 09/23/2025 1:03 PM SPORTS ANCHOR Spoke to Dr. Chloé Coreas who agreed with plan of transfusion. Dr. Coreas states she has privileges at [facility]. Dr. Coreas will contact patient and get patient set up for transfusionthrough [facility]. Most recent lab results faxed to Dr. Coreas's office. TS ANCHOR documented in this encounter Plan of Treatment Upcoming Encounters Date Type Department Care Team (Late st Contact Info) Description 10/04/2025 7:30 AM SPORTS ANCHOR Office Visit [facility] [employer] [place] [address] [place] [phone] Tarsha Watkins, ANP [address] [place] [address] 11/22/2025 7:30 AM SPORTS ANCHOR Office Visit [facility] [employer] [place] [address] [place] [address] Tarsha Watkins, ROCCO [address] [place] [address] documented as of this encounter Visit Diagnoses Not on filedocumented in this encounter Care Teams Global Logistics Analyst Relationship Specialty Start Date End Date Viry Reyna MD [address] [place] [address] PCP - General Internal Medicine 04/22/24 documented as of this encounter
--- OUTSIDE RECORDS SUMMARY | 2025-09-23 18:52 | XMS_ITS | Encounter Summary ---
Author Organization [facility] Address [address] [place] [address] Care Team Providers Care Service Representative Name Role Phone Viry Reyna MD Primary Care Provider [phone] Encounter Details Date Type Department Care Team (Latest Contact Info) Description 12/31/2001 Outpatient Historical [facility] Angelo Morales MD [address] [place] [phone] SCREENING MAL NEOP-CERVIX (Primary Dx) Social History Tobacco Use Types Packs/Day Years Used Date Smoking Tobacco: Never Assessed Comments Unknown Sex and Gender Information Value Date Recorded Sex Assigned at Not on file Legal Sex Female 3:28 AM BRICK YARD HAND Gender Identity Not on file Sexual Orientation Not on file documented as of this encounter Plan of Treatment Upcoming Encounters Date Type Department Care Team (Late st Contact Info) Description 10/04/2025 7:30 AM BRICK YARD HAND Office Visit [facility] [address] [place] [address] Tarsha Watkins ANP [address] [place] [address] 11/22/2025 7:30 AM BRICK YARD HAND Office Visit [facility] [employer] [address] [place] [address] Tarsha Watkins, ROCCO [address] [place] [place] [address] documented as of this encounter Visit Diagnoses Diagnosis Screening for malignant neoplasm of the cervix- Primary documented in this encounter Care Teams Service Representative Relationship Specialty Start Date End Date Viry Reyna MD [address] [place] [address] PCP - General Internal Medicine 04/22/24 documented as of this encounter
--- OUTSIDE RECORDS SUMMARY | 2025-09-23 18:52 | XMS_ITS | Encounter Summary ---
Author Organization [facility] Address [address] [place] [address] Care Team Providers Care Division Traffic Superintendent Name Role Phone Viry Reyna MD Primary Care Provider [phone] Encounter Details Date Type Department Care Team (Late st Contact Info) Description 11/14/2001 Outpatient Historical [facility] [address] [place] [address] [place] MD [address] [place] [address] Social History Tobacco Use Types Packs/Day Years Used Date Smoking Tobacco: Never Assessed Comments Unknown Sex and Gender Information Value Date Recorded Sex Assigned at Not on file Legal Sex Female 3:28 AM CHIP SEPARATOR Gender Identity Not on file Sexual Orientation Not on file documented as of this encounter Plan of Treatment Upcoming Encounters Date Type Department Care Team (Late st Contact Info) Description 10/04/2025 7:30 AM CHIP SEPARATOR Office Visit [facility] [employer] [place] [address] [place] [address] Tarsha Watkins, ROCCO [address] [place] [address] 11/22/2025 7:30 AM CHIP SEPARATOR Office Visit [facility] [employer] [place] [address] [place] [address] Tarsha Watkins, ANP [address] [place] [address] documented as of this encounter Visit Diagnoses Not on filedocumented in this encounter Care Teams Division Traffic Superintendent Relationship Specialty Start Date End Date Viry Reyna MD [address] [address] PCP - General Internal Medicine 04/22/24 documented as of this encounter
--- OUTSIDE RECORDS SUMMARY | 2025-09-23 18:52 | XMS_ITS | Clinical Summary ---
Author Organization [facility] Address [facility] [place] [address] Care Team Providers Care Senior Research Consultant Name Role Phone None, Provider MD Primary Care Provider Unavaila ble Medications ferrous sulfate, 65 mg elemental, 325 (65 FE) MG tablet Take 1 tablet (325 mg total) by mouth every other day. 15 tablet 09/13/2025 Active medroxyPROGESTE Juan M (PROVERA) 10 MG tablet Take 1 tablet (10 mg total) by mouth 3 (three) times daily for 5 days. 15 tablet 09/13/2025 Encounters Date Type Department Care Team Description 09/13/2025 7:55 AM DIVERSIONAL THERAPIST'S ASSISTANT - 09/13/2025 12:20 PM DIVERSIONAL THERAPIST'S ASSISTANT Emergency [facility] [place] [address] Maria Ines Grace MD Vaginal Bleeding Discharge Disposition: Home or Self Care (Routine Discharge) 09/13/2025 Travel from Last 3 Months Social History Tobacco Use Types Packs/Day Years Used Date Smoking Tobacco: Former Cigarettes Q uit: 2020 Smokeless Tobacco: Never Tobacco Cessation:Counseling Given: Not Answered Alcohol Use Standard Drinks/Week Comments Never 0 (1 standard drink = 0.6 oz pur e alcohol) Comments No Sex and Gender Information Value Date Recorded Sex Assigned at Female 09/13/2025 8:02 AM DIVERSIONAL THERAPIST'S ASSISTANT Legal Sex Female 6:23 PM CDT Gender Identity Not on file Sexual Orientation Not on file Last Filed Vital Signs Vital Sign Reading Time Taken Comments Blood Pressure 117/70 09/13/2025 11:38 AM DIVERSIONAL THERAPIST'S ASSISTANT Pulse 74 09/13/2025 11:38 AM DIVERSIONAL THERAPIST'S ASSISTANT Temperature 36.8 C (98.3 F) 09/13/2025 7:49 AM DIVERSIONAL THERAPIST'S ASSISTANT Respiratory Rate 18 09/13/2025 11:38 AM DIVERSIONAL THERAPIST'S ASSISTANT Oxygen Saturation 100% 09/13/2025 11:38 AM DIVERSIONAL THERAPIST'S ASSISTANT Inhaled Oxygen Concentration - - Weight 86.2 kg (190 lb) 09/13/2025 7:49 AM DIVERSIONAL THERAPIST'S ASSISTANT Height 162.6 cm (5' 4) 09/13/2025 7:49 AM DIVERSIONAL THERAPIST'S ASSISTANT Body Mass Index 32.61 09/13/2025 7:49 AM DIVERSIONAL THERAPIST'S ASSISTANT Plan of Treatment Health Maintenance Due Date Last Done Comments Cervical Cancer Screening Pa p Smear (Age 30 to 64) Every 3 Years 1985 Annual Physical 1988 Hepatitis C 2003 Hepatitis B Vaccines (1 of 3 - 19+ 3-dose series) 2004 HPV Vaccines (1 - 3-dose SCD M series) 2012 Cervical Cancer Screening Pa p with HPV Testing (Age 30 to 64) Every 5 Years 2015 Cervical Cancer Screening wi th HPV 2015 Mammogram Screening 2025 COVID-19 Vaccine (3 - 2024-2 6 season) 2025 09/25/2021, 09/04/2021 Influenza Adult (#1) 2025 DTaP, Tdap and Td Vaccines ( 2 - Td or Tdap) 02/18/2035 02/18/2025 Hepatitis A Vaccines Aged Out No long er eligible based on patient's age to complete this topic Meningococcal B Vaccine Aged Out No l onger eligible based on patient's age to complete this topic Meningococcal Vaccine Aged Out No luis kristine eligible based on patient's age to complete this topic Pneumococcal Vaccine: Pediatrics (0 to 5 Years) and At-Risk Patients (6 to 49 Years) Aged Out No longer eligible b ased on patient's age to complete this topic RSV Immunizations Under 20 Months Aged Out No longer eligible b ased on patient's age to complete this topic Procedures Procedure Name Priority Date/Time Associated Diagnosis Comments US PELVIC NON OB COMP TA+TV STAT 09/13/2025 10:18 AM DIVERSIONAL THERAPIST'S ASSISTANT CHORIONIC GONADOTROPIN HCG QL STAT 09/13/2025 8:13 AM DIVERSIONAL THERAPIST'S ASSISTANT BASIC METABOLIC PANEL STAT 09/13/2025 8:13 AM DIVERSIONAL THERAPIST'S ASSISTANT CBC W/DIFF AUTOMATED STAT 09/13/2025 8:13 AM DIVERSIONAL THERAPIST'S ASSISTANT from Last 3 Months Results * US PELVIC NON OB COMP TA+TV (09/13/2025 10:18 AM DIVERSIONAL THERAPIST'S ASSISTANT) Anatomical Region Laterality Modality Pelvis Ultrasound 09/13/2025 11:0 6 AM DIVERSIONAL THERAPIST'S ASSISTANT Impressions 09/13/2025 11:20 AM DIVERSIONAL THERAPIST'S ASSISTANT IMPRESSION: PROBABLE DEBRIS WITHIN THE ENDOMETRIAL CANAL FROM THE VAGINAL BLEEDING. NO DEFINITE UTERINE OR ENDOMETRIAL MASS. IF SYMPTOMS PERSIST, OR CONCERN WARRANTS, DIRECT ENDOMETRIAL INSPECTION AND POTENTIAL SAMPLING MAY BE INDICATED. OTHERWISE UNREMARKABLE TRANSABDOMINAL AND TRANSVAGINAL ULTRASOUND OF THE PELVIS. Referred By: Interpreted By: Ji Duncan MD, 09/13/2025 11:06 AM Narrative 09/13/2025 11:20 AM DIVERSIONAL THERAPIST'S ASSISTANT [address] [address] EXAM: US PELVIC NON OB COMP TA+TV INDICATION: Heavy vaginal bleeding. TECHNIQUE: Transabdominal and transvaginal ultrasound pelvis was performed. COMPARISON EXAM: None FINDINGS: Uterus is anteverted measuring 8.7 x 4.7 x 6.1 cm. Endometrium measures 1 cm in thickness. There is some probable debris, likely blood products in the endometrial canal. No appreciable discrete endometrial mass is identified although sensitivity is limited with the degree contained within the canal. Cervical nabothian cysts are noted. There is no abnormal mass or fluid in the cul-de-sac. Ovaries are unremarkable with no evidence of mass or torsion. The right ovary measured 4.2 x 2.4 x 2.3 cm. The left ovary measured 4.1 x 2.2 x 2.7 cm. Procedure Note Ji Duncan MD - 09/13/[address], [place] [address] EXAM: US PELVIC NON OB COMP TA+TV INDICATION: Heavy vaginal bleeding. TECHNIQUE: Transabdominal and transvaginal ultrasound pelvis wasperformed. COMPARISON EXAM: None FINDINGS: Uterus is anteverted measuring 8.7 x 4.7 x 6.1 cm. Endometriummeasures 1 cm in thickness. There is some probable debris, likely bloodproducts in the endometrial canal. No appreciable discrete endometrialmass is identified although sensitivity is limited with the degreecontained within the canal. Cervical nabothian cysts are noted. There isno abnormal mass or fluid in the cul-de-sac. Ovaries are unremarkablewith no evidence of mass or torsion. The right ovary measured 4.2 x 2.4 x2.3 cm. The left ovary measured 4.1 x 2.2 x 2.7 cm. IMPRESSION: PROBABLE DEBRIS WITHIN THE ENDOMETRIAL CANAL FROM THE VAGINALBLEEDING. NO DEFINITE UTERINE OR ENDOMETRIAL MASS. IF SYMPTOMS PERSIST,OR CONCERN WARRANTS, DIRECT ENDOMETRIAL INSPECTION AND POTENTIAL SAMPLINGMAY BE INDICATED. OTHERWISE UNREMARKABLE TRANSABDOMINAL AND TRANSVAGINALULTRASOUND OF THE PELVIS. Referred By: Interpreted By: Ji Duncan MD, 09/13/2025 11:06 AM Maria Ines Grace MD ULTRASOUND Final Result * (ABNORMAL) BASIC METABOLIC PANEL (09/13/2025 8:13 AM DIVERSIONAL THERAPIST'S ASSISTANT) GLUCOSE 73 70 - 99 MG/DL 09/13/2025 8:56 AM DIVERSIONAL THERAPIST'S ASSISTANT [facility] BUN 16 7 - 18 MG/DL 09/13/2025 8:56 AM [facility] CREATININE S/P/B 0.76 0.55 - 1.02 MG/DL 09/13/2025 8:56 AM [facility] SODIUM S/P/B 140 136 - 145 MMOL/L 09/13/2025 8:56 AM [facility] POTASSIUM S/P/B 4.1 3.5 - 5.1 MMOL/L 09/13/2025 8:56 AM DIVERSIONAL THERAPIST'S ASSISTANT [facility] CHLORIDE S/P/B 111 97 - 115 MMOL/L 09/13/2025 8:56 AM [facility] CO2 27.6 21 - 32 MMOL/L 09/13/2025 8:56 AM [facility] CALCIUM S/P/B 8.5 8.5 - 10.1 MG/DL 09/13/2025 8:56 AM [facility] ANION GAP 1.4(L) 2 - 10 MMOL/L 09/13/2025 8:56 AM [facility] BUN CREATININE RATIO 20.9 6 - 26 09/13/2025 8:56 AM [facility] GFR ESTIMATE >90 >90 ML/MIN/1.7 3 M2 09/13/2025 8:56 AM [facility] Comment: NOTE: eGFR is not calculated for patients <18 years of age or gender unknown. This is an estimated GFR calculation using the new CKD EPI creatinine equation without race and so does not require a correction factor for race. This estimated GFR should not be used for calculating drug doses. 09/13/2025 8:13 AM DIVERSIONAL THERAPIST'S ASSISTANT us Maria Ines Grace MD LABORATORY Final Result [facility] [address] [place] [address], [place] [phone] * Qualitative HCG (09/13/2025 8:13 AM DIVERSIONAL THERAPIST'S ASSISTANT) PREG SCREEN-SERUM NEGATIVE 09/13/2025 8:52 AM DIVERSIONAL THERAPIST'S ASSISTANT [facility] 09/13/2025 8:13 AM DIVERSIONAL THERAPIST'S ASSISTANT us Maria Ines Grace MD LABORATORY Final Result [facility] [address] [place] [address], * (ABNORMAL) CBC W/DIFF AUTOMATED (09/13/2025 8:13 AM DIVERSIONAL THERAPIST'S ASSISTANT) [facility] WBC 4.78 4.5 - 11.0 x10'3/uL 09/13/2025 8:25 AM [facility] RBC 3.18(L) 4.20 - 5.40 x10'6/uL 09/13/2025 8:25 AM [facility] HGB 8.3(L) 12.0 - 16.0 G/DL 09/13/2025 8:25 AM [facility] HCT 25.9(L) 38.0 - 48.0 % 09/13/2025 8:25 AM [facility] MCV 81.4 81.0 - 99.0 FL 09/13/2025 8:25 AM [facility] MCH 26.1(L) 27.0 - 31.0 PG 09/13/2025 8:25 AM [facility] MCHC 32.0 32.0 - 36.0 G/DL 09/13/2025 8:25 AM [facility] RDW 14.8(H) 11.5 - 14.5 % 09/13/2025 8:25 AM [facility] PLT 237 130 - 400 x10'3/uL 09/13/2025 8:25 AM [facility] MPV 10.5 9.3 - 12.2 FL 09/13/2025 8:25 AM [facility] DIFFERENTIAL TYPE AUTOMATED DIFFERENTIAL 09/13/2025 8:25 AM [facility] NEUTROPHILS % 72.8 % 09/13/2025 8:25 AM DIVERSIONAL THERAPIST'S ASSISTANT [facility] LYMPHOCYTES % 18.4 % 09/13/2025 8:25 AM DIVERSIONAL THERAPIST'S ASSISTANT [facility] MONOCYTES % 6.9 % 09/13/2025 8:25 AM [facility] EOSINOPHILS 1.3 % 09/13/2025 8:25 AM DIVERSIONAL THERAPIST'S ASSISTANT [facility] BASOPHILS 0.2 % 09/13/2025 8:25 AM DIVERSIONAL THERAPIST'S ASSISTANT [facility] IMMATURE GRANS % 0.4 % 09/13/20 8:25 AM DIVERSIONAL THERAPIST'S ASSISTANT [facility] ABS. NEUTROPHILS 3.48 1.80 - 7.70 x10'3/uL 09/13/2025 8:25 AM [facility] ABS. LYMPHOCYTES 0.88(L) 1.00 - 4.80 x10'3/uL 09/13/2025 8:25 AM DIVERSIONAL THERAPIST'S ASSISTANT [facility] ABS. MONOCYTES 0.33 0.24 - 0.86 x10'3/uL 09/13/2025 8:25 AM DIVERSIONAL THERAPIST'S ASSISTANT [facility] ABS. EOSINOPHILS 0.06 0.04 - 0.36 x10'3/uL 09/13/2025 8:25 AM [facility] ABS. BASOPHILS 0.01 0.01 - 0.08 x10'3/uL 09/13/2025 8:25 AM DIVERSIONAL THERAPIST'S ASSISTANT [facility] ABS. IMMATURE GRANULOCYTES 0.02 0.00 - 0.49 x10'3/uL 09/13/2025 8:25 AM [facility] 09/13/2025 8:13 AM DIVERSIONAL THERAPIST'S ASSISTANT us Maria Ines Grace MD LABORATORY Final Result [facility] [address] [place] [address], from Last 3 Months Insurance [employer] Care Teams Senior Research Consultant Relationship Specialty Start Date End Date None, Provider, PCP - General UNKNOWN PHYSICIAN SPECIALTY 09/13/25
--- OUTSIDE RECORDS SUMMARY | 2025-09-23 18:52 | XMS_ITS | Encounter Summary ---
Author Organization [facility] Address [address] [place] [address] Care Team Providers Care Ncqa Specialist Name Role Phone Viry Reyna MD Primary Care Provider [phone] Encounter Details Date Type Department Care Team (Latest Contact Info) Description 11/14/2001 Outpatient Historical HIS [facility] IS[facility]RA Baca, Quan Burton MD NO ADDRESS ON FILE ACUTE PHARYNGITIS (Primary Dx) Social History Tobacco Use Types Packs/Day Years Used Date Smoking Tobacco: Never Assessed Comments Unknown Sex and Gender Information Value Date Recorded Sex Assigned at Not on file Legal Sex Female 3:28 AM DIMMER BOARD OPERATOR Gender Identity Not on file Sexual Orientation Not on file documented as of this encounter Plan of Treatment Upcoming Encounters Date Type Department Care Team (Late st Contact Info) Description 10/04/2025 7:30 AM DIMMER BOARD OPERATOR Office [facility] [address] [address] Tarsha Watkins, ROCCO [address] [place] [address] 11/22/2025 7:30 AM DIMMER BOARD OPERATOR Office Visit [facility] at [facility] [facility] [address] [place] [address] Tarsha Watkins, ROCCO [address] [place] [address] documented as of this encounter Visit Diagnoses Diagnosis Acute pharyngitis- Primary documented in this encounter Care Teams Ncqa Specialist Relationship Specialty Start Date End Date Viry Reyna MD [address] [place] [address] PCP - General Internal Medicine 04/22/24 documented as of this encounter
--- OUTSIDE RECORDS SUMMARY | 2025-09-23 18:52 | XMS_ITS | Encounter Summary ---
Author Organization [facility] Address [address] [place] [address] Care Team Providers Care Washer Carcass Name Role Phone Viry Reyna MD Primary Care Provider [phone] Encounter Details Date Type Department Care Team (Latest Contact Info) Description 12/07/1999 Outpatient Historical HIS [facility] IS[facility] Byrd, Olu Hedrick MD [address] [facility] [address] [place] [address] Pulmonary congestion and hypostasis (Primary Dx) Social History Tobacco Use Types Packs/Day Years Used Date Smoking Tobacco: Never Assessed Comments Unknown Sex and Gender Information Value Date Recorded Sex Assigned at Not on file Legal Sex Female 3:28 AM LEAF CONDITIONER HELPER Gender Identity Not on file Sexual Orientation Not on file documented as of this encounter Plan of Treatment Upcoming Encounters Date Type Department Care Team (Late st Contact Info) Description 10/04/2025 7:30 AM LEAF CONDITIONER HELPER Office Visit [facility] [place] [address] [place] [address] Tarsha Watkins, ROCCO [address] [place] [address] 11/22/2025 7:30 AM LEAF CONDITIONER HELPER Office Visit [facility] [place] [address] [place] [address] Tarsha Watkins, ANP [address] [place] [address] documented as of this encounter Visit Diagnoses Diagnosis Pulmonary congestion and hypostasis- Primary documented in this encounter Care Teams Washer Carcass Relationship Specialty Start Date End Date Viry Reyna MD [address] [place] [address] PCP - General Internal Medicine 04/22/24 documented as of this encounter
--- OUTSIDE RECORDS SUMMARY | 2025-09-23 18:52 | XMS_ITS | Encounter Summary ---
Author Organization [facility] Address [address] [place] [address] Care Team Providers Care Exterior Work Helper Name Role Phone Viry Reyna MD Primary Care Provider [phone] Encounter Details Date Type Department Care Team (Latest Contact Info) Description 08/22/1999 Outpatient Historical HIS LAB,NON-PATIENT VirginiaOlu MD [address] [facility] [address] [place] [address] Acute pharyngitis (Primary Dx) Social History Tobacco Use Types Packs/Day Years Used Date Smoking Tobacco: Never Assessed Comments Unknown Sex and Gender Information Value Date Recorded Sex Assigned at Not on file Legal Sex Female 3:28 AM LICENSED MASSAGE PRACTITIONER Gender Identity Not on file Sexual Orientation Not on file documented as of this encounter Plan of Treatment Upcoming Encounters Date Type Department Care Team (Late st Contact Info) Description 10/04/2025 7:30 AM LICENSED MASSAGE PRACTITIONER Office [facility] [place] [address] [place] [address] Tarsha Watkins ANP [address] [place] [address] 11/22/2025 7:30 AM LICENSED MASSAGE PRACTITIONER Office Visit [facility] [place] [address] [place] [address] Trasha Watkins, ROCCO [address] [place] [address] documented as of this encounter Visit Diagnoses Diagnosis Acute pharyngitis- Primary documented in this encounter Care Teams Exterior Work Helper Relationship Specialty Start Date End Date Viry Reyna MD [address] [place] [address] PCP - General Internal Medicine 04/22/24 documented as of this encounter
--- OUTSIDE RECORDS SUMMARY | 2025-09-23 18:52 | XMS_ITS | Encounter Summary ---
Author Organization [facility] Address [address] [place] [address] Care Team Providers Care Corner Cutter Name Role Phone Viry Reyna MD Primary Care Provider [phone] Encounter Details Date Type Department Care Team (Latest Contact Info) Description 06/05/1999 Outpatient Historical HIS LAB,NON-PATIENT [facility] Laboratory examination (Primary Dx) Social History Tobacco Use Types Packs/Day Years Used Date Smoking Tobacco: Never Assessed Comments Unknown Sex and Gender Information Value Date Recorded Sex Assigned at Not on file Legal Sex Female 3:28 AM SOUND ENGINEERING TECHNICIAN Gender Identity Not on file Sexual Orientation Not on file documented as of this encounter Plan of Treatment Upcoming Encounters Date Type Department Care Team (Late st Contact Info) Description 10/04/2025 7:30 AM SOUND ENGINEERING TECHNICIAN Office [facility] [address] [place] [address] Tarsha Watkins, ROCCO [address] [place] [address] 11/22/2025 7:30 AM SOUND ENGINEERING TECHNICIAN Office Visit [facility] [place] [address] [place] [address] Tarsha Watkins, ROCCO [address] [place] [place] [address] documented as of this encounter Visit Diagnoses Diagnosis Laboratory examination- Primary documented in this encounter Care Teams Corner Cutter Relationship Specialty Start Date End Date Viry Reyna MD [address] [place] [address] PCP - General Internal Medicine 04/22/24 documented as of this encounter
[2025-09-23 21:23] LABS: Iron 41 ug/dL (37-170)
[2025-09-23 21:33] LABS: Percent Iron Saturation 11 % (20-50)
[2025-09-23] MEDS: TUBING, BLOOD PLUM PUMP TUBING 1 EACH XX (23:24)
[2025-09-23] MEDS: TUBING, BLOOD SET 1 EACH XX (23:24)
== END 2025-09-23 23:50 | disposition home or self-care (01) ==
PROVIDERS: Physician Assistant; Emergency Provider Emergency Medicine; PCP Nurse Practitioner Adult Health
DX: D64.9 Anemia, unspecified (principal); Z87.891 Personal history of nicotine dependence
CPT/HCPCS: 36415; 36430; 80053; 83540; 83550; 85025; 85610; 85730; 86850; 86900; 86901; 86923; 93005; 96360; 96361; 99285; J7050; P9016

== ENCOUNTER 2025-10-04 00:35 | Day surgery (SDC) | payer OTHER, SELFPAY ==
[2025-09-22 14:49] VITALS: BMI 32.5
--- NOTE | 2025-09-22 15:13 | PC.NURSE ---
[facility] has started construction of its new state of the art ER which will open Spring 2026. With this, we anticipate parking may be a challenge for some our surgical patients and families. Parking spaces are limited but are available for all Surgical, obstetrics, and ER patients sharing this lot. If you arrive and find you are having a hard time finding a parking space, please note that we understand the challenges, please drive around the hospital and park near Hospital Entrance 1. When you enter this entrance, you can ask a volunteer to direct or take you back to the surgical waiting area to check in. We appreciate everyone?s understanding of these expected challenges while we build for your future. Report to the Outpatient Waiting Room, entrance under the green pavilion located off [address], at time _0715 on date __10/04/25 . Planned Procedure Time: _914 .? Time changes happen often and if your time is changed the preop area will call you the afternoon before. - You and your visitor will be asked to self-screen and do not enter if you have any COVID symptoms. Please call surgeon if you need to reschedule. - A mask is optional within the hospital at this time. Patients may have clear liquids (water, carbonated beverages, clear teas, apple juice) until 3 hours prior to surgery with a maximum of 20 ounces. - No food from midnight until time of surgery and no smoking, or chewing tobacco (or any form of nicotine). No chewing gum, candy or mints. - Infants may have breast milk until 4 hours before surgery, infant formula 6 hours prior to surgery. - Children will be allowed to drink immediately following surgery.? If applicable, please bring a bottle or sippy cup to assist with drinking. Juice, water, soda, and popsicles are readily available.? For infants on formula, please bring formula the day of surgery.? Pacifiers are allowed. Take only the following medications with a SIP of water on the morning of surgery: __Bupropion, Levothyroxine DO NOT STOP ANY OF YOUR OTHER PRESCRIPTION MEDICATIONS PRIOR TO SURGERY EXCEPT THE FOLLOWING Hold all vitamins and supplements for 3 days per anesthesiologist. Medications to discontinue per physician __Zepbound hold for 10 days Please no make-up, nail amharic, hairspray, perfume, deodorant, or body powder the day of surgery.? No jewelry (including any body piercings) or valuables the day of surgery, leave them at home.? Please take a shower or bath the night before, or the morning of, surgery with an antibacterial soap.? Wear comfortable, loose fitting clothing.? Children are encouraged to wear pajamas. - Jewelry must be removed prior to entering the operating room.? Rings and piercings that are not removed may be cut off. - The hospital will not accept responsibility for valuables.? - Please leave all valuables, including medications, at home the day of surgery. If you are going home after surgery, a licensed uke driver must drive you home.? - NO public transportation without another adult if you receive anesthesia. - We recommend that an adult stay with you for 24 hours following discharge. - We also recommend that you do not drive, make important decision, drink alcoholic beverages, or take any drugs that were not prescribed by your health care provider for at least 24 hours after your discharge time. For Pediatric surgeries, we recommend two adults accompany the child home. Follow any additional instructions given to you from your surgeon. Telephone instructions given to __Emy and asked if any additional questions and then verbalized understanding. Patient advised to call surgeon office or pre surgery nurse liaison [phone] if any additional questions.
--- OUTSIDE RECORDS SUMMARY | 2025-10-04 00:38 | XMS_ITS | Encounter Summary ---
Author Organization [facility] Address [address] [place] [address] Care Team Providers Care Academic Registrar Name Role Phone Viry Reyna MD Primary Care Provider [phone] Encounter Details Date Type Department Care Team (Latest Contact Info) Description 12/07/1999 Outpatient Historical HIS [facility] IS[facility] Byrd, Olu Hedrick MD [address] [facility] [address] [place] [address] Pulmonary congestion and hypostasis (Primary Dx) Social History Tobacco Use Types Packs/Day Years Used Date Smoking Tobacco: Never Assessed Comments Unknown Sex and Gender Information Value Date Recorded Sex Assigned at Not on file Legal Sex Female 3:28 AM JAVA SOLUTIONS ARCHITECT Gender Identity Not on file Sexual Orientation Not on file documented as of this encounter Plan of Treatment Upcoming Encounters Date Type Department Care Team (Late st Contact Info) Description 10/05/2025 10:00 AM JAVA SOLUTIONS ARCHITECT Office Visit [facility] [place] [address] [place] [address] Tarsha Watkins, ROCCO [address] [place] [address] 11/22/2025 7:30 AM JAVA SOLUTIONS ARCHITECT Office Visit [facility] [employer] [place] [address] [place] [address] Tarsha Watkins, ANP [address] [place] [address] documented as of this encounter Visit Diagnoses Diagnosis Pulmonary congestion and hypostasis- Primary documented in this encounter Care Teams Academic Registrar Relationship Specialty Start Date End Date Viry Reyna MD [address] [place] [address] PCP - General Internal Medicine 04/22/24 documented as of this encounter
--- OUTSIDE RECORDS SUMMARY | 2025-10-04 00:38 | XMS_ITS | Encounter Summary ---
Author Organization [facility] Address [address] [place] [address] Care Team Providers Care Endocrinology Specialist Name Role Phone Viry Reyna MD Primary Care Provider [phone] Encounter Details Date Type Department Care Team (Late st Contact Info) Description 01/05/2003 Outpatient Historical [facility] [address] [place] [address] [place] MD [address] [place] [address] Social History Tobacco Use Types Packs/Day Years Used Date Smoking Tobacco: Never Assessed Comments Unknown Sex and Gender Information Value Date Recorded Sex Assigned at Not on file Legal Sex Female 3:28 AM SALES EXECUTIVE INSURANCE Gender Identity Not on file Sexual Orientation Not on file documented as of this encounter Plan of Treatment Upcoming Encounters Date Type Department Care Team (Late st Contact Info) Description 10/05/2025 10:00 AM SALES EXECUTIVE INSURANCE Office Visit [facility] [facility] [address] [place] [address] Tarsha Watkins, ROCCO [address] [place] [address] 11/22/2025 7:30 AM SALES EXECUTIVE INSURANCE Office Visit [facility] [employer] [facility] [address] [place] [address] Tarsha Watkins, ANP [address] [place] [address] documented as of this encounter Visit Diagnoses Not on filedocumented in this encounter Care Teams Endocrinology Specialist Relationship Specialty Start Date End Date Viry Reyna MD [address] [place] [address] PCP - General Internal Medicine 04/22/24 documented as of this encounter
--- OUTSIDE RECORDS SUMMARY | 2025-10-04 00:38 | XMS_ITS | Encounter Summary ---
Author Organization [facility] Address [address] [place] [address] Care Team Providers Care V Groove Cutter Name Role Phone Viry Reyna MD Primary Care Provider [phone] Encounter Details Date Type Department Care Team (Latest Contact Info) Description 01/05/2003 Outpatient Historical [facility], [address], Olu Hedrick MD [address] [facility] [address] [place] [phone] LABORATORY EXAMINATION (Primary Dx) Social History Tobacco Use Types Packs/Day Years Used Date Smoking Tobacco: Never Assessed Comments Unknown Sex and Gender Information Value Date Recorded Sex Assigned at Not on file Legal Sex Female 3:28 AM PROCUREMENT FORESTER Gender Identity Not on file Sexual Orientation Not on file documented as of this encounter Plan of Treatment Upcoming Encounters Date Type Department Care Team (Late st Contact Info) Description 10/05/2025 10:00 AM PROCUREMENT FORESTER Office Visit [facility] at [facility] [employer] [address] [place] [address] Tarsha Watkins ANP [address] [place] [address] 11/22/2025 7:30 AM PROCUREMENT FORESTER Office Visit [facility] at [facility] [employer] [address] [place] [address] Tarsha Watkins, ANP [address] [place] [place] [address] documented as of this encounter Visit Diagnoses Diagnosis Laboratory examination- Primary documented in this encounter Care Teams V Groove Cutter Relationship Specialty Start Date End Date Viry Reyna MD [address] [place] [address] PCP - General Internal Medicine 04/22/24 documented as of this encounter
--- OUTSIDE RECORDS SUMMARY | 2025-10-04 00:38 | XMS_ITS | Encounter Summary ---
Author Organization [facility] Address [address] [place] [address] Care Team Providers Care Aluminum Shingle Roofer Name Role Phone Viry Reyna MD Primary Care Provider [phone] Encounter Details Date Type Department Care Team (Latest Contact Info) Description 12/31/2001 Outpatient Historical HIS [facility] Angelo Morales MD [address] [facility] [address] [place] [phone] SCREENING MAL NEOP-CERVIX (Primary Dx) Social History Tobacco Use Types Packs/Day Years Used Date Smoking Tobacco: Never Assessed Comments Unknown Sex and Gender Information Value Date Recorded Sex Assigned at Not on file Legal Sex Female 3:28 AM MOSS GATHERER Gender Identity Not on file Sexual Orientation Not on file documented as of this encounter Plan of Treatment Upcoming Encounters Date Type Department Care Team (Late st Contact Info) Description 10/05/2025 10:00 AM MOSS GATHERER Office Visit [facility] [address] [place] [address] Tarsha Watkins ANP [address] [place] [address] 11/22/2025 7:30 AM MOSS GATHERER Office Visit [facility] [employer] [place] [address] [place] [address] Tarsha Watkins, ROCCO [address] [place] [address] documented as of this encounter Visit Diagnoses Diagnosis Screening for malignant neoplasm of the cervix- Primary documented in this encounter Care Teams Aluminum Shingle Roofer Relationship Specialty Start Date End Date Viry Reyna MD [address] [place] [address] PCP - General Internal Medicine 04/22/24 documented as of this encounter
--- OUTSIDE RECORDS SUMMARY | 2025-10-04 00:38 | XMS_ITS | Encounter Summary ---
Author Organization [facility] Address [address] [place] [address] Care Team Providers Care Rigging Slinger Name Role Phone Viry Reyna MD Primary Care Provider [phone] Encounter Details Date Type Department Care Team (Late st Contact Info) Description 12/31/2001 Outpatient Historical [facility] [address] [facility] [place] [address] Quan Baca MD NO ADDRESS ON FILE Social History Tobacco Use Types Packs/Day Years Used Date Smoking Tobacco: Never Assessed Comments Unknown Sex and Gender Information Value Date Recorded Sex Assigned at Not on file Legal Sex Female 3:28 AM ELECTRICAL PROSPECTING ENGINEER Gender Identity Not on file Sexual Orientation Not on file documented as of this encounter Plan of Treatment Upcoming Encounters Date Type Department Care Team (Late st Contact Info) Description 10/05/2025 10:00 AM ELECTRICAL PROSPECTING ENGINEER Office Visit [facility] at [facility] [address] [place] [address] Tarsha Watkins, ROCCO [address] [place] [address] 11/22/2025 7:30 AM ELECTRICAL PROSPECTING ENGINEER Office Visit [facility] at [facility] [address] [place] [address] Tarsha Watkins, ROCCO [address] [place] [address] documented as of this encounter Visit Diagnoses Not on filedocumented in this encounter Care Teams Rigging Slinger Relationship Specialty Start Date End Date Viry Reyna MD [address] [place] [address] PCP - General Internal Medicine 04/22/24 documented as of this encounter
--- OUTSIDE RECORDS SUMMARY | 2025-10-04 00:38 | XMS_ITS | Encounter Summary ---
Author Organization [facility] Address [address] [place] [address] Care Team Providers Care Mechanical Insulator Name Role Phone Viry Reyna MD Primary Care Provider [phone] Encounter Details Date Type Department Care Team (Latest Contact Info) Description 06/05/1999 Outpatient Historical [facility],NON-PATIENT [facility] Laboratory examination (Primary Dx) Social History Tobacco Use Types Packs/Day Years Used Date Smoking Tobacco: Never Assessed Comments Unknown Sex and Gender Information Value Date Recorded Sex Assigned at Not on file Legal Sex Female 3:28 AM SCREW MACHINE OPERATOR SWISS TYPE Gender Identity Not on file Sexual Orientation Not on file documented as of this encounter Plan of Treatment Upcoming Encounters Date Type Department Care Team (Late st Contact Info) Description 10/05/2025 10:00 AM SCREW MACHINE OPERATOR SWISS TYPE Office Visit [facility] [address] [place] [address] Tarsha Watkins, ROCCO [address] [place] [address] 11/22/2025 7:30 AM SCREW MACHINE OPERATOR SWISS TYPE Office Visit [facility] [employer] [place] [address] [place] [address] Tarsha Watkins, ROCCO [address] [place] [address] documented as of this encounter Visit Diagnoses Diagnosis Laboratory examination- Primary documented in this encounter Care Teams Mechanical Insulator Relationship Specialty Start Date End Date Viry Reyna MD [address] [place] [address] PCP - General Internal Medicine 04/22/24 documented as of this encounter
--- OUTSIDE RECORDS SUMMARY | 2025-10-04 00:38 | XMS_ITS | Encounter Summary ---
Author Organization [facility] Address [address] [place] [address] Care Team Providers Care General Expeditor Name Role Phone Viry Reyna MD Primary Care Provider [phone] Encounter Details Date Type Department Care Team (Latest Contact Info) Description 02/04/2007 Outpatient Historical [facility], [place] Conversion, History Menstrual Disorder NEC (Primary Dx) Social History Tobacco Use Types Packs/Day Years Used Date Smoking Tobacco: Never Assessed Comments Unknown Sex and Gender Information Value Date Recorded Sex Assigned at Not on file Legal Sex Female 3:28 AM INTERIOR DESIGN PROFESSOR Gender Identity Not on file Sexual Orientation Not on file documented as of this encounter Plan of Treatment Upcoming Encounters Date Type Department Care Team (Late st Contact Info) Description 10/05/2025 10:00 AM INTERIOR DESIGN PROFESSOR Office Visit [facility] [address] [place] [address] Tarsha Watkins, ROCCO [address] [place] [address] 11/22/2025 7:30 AM INTERIOR DESIGN PROFESSOR Office Visit [facility] [address] [place] [address] Tarsha Watkins, ROCCO [address] [place] [address] documented as of this encounter [...] Conversion HEMATOLOGY ORDERABLES Edited Performing Organization Address City/[facility] de Phone Number INTERFACE SYSTEM Refer to [...] Conversion HEMATOLOGY ORDERABLES Edited Performing Organization Address [facility] de Phone Number INTERFACE SYSTEM Refer to clinic/hospital department * TSH (02/04/2007 4:22 PM CDT) TSH 2.90 0.27 - 4.20 uU/mL INTERFACE SYSTEM 02/04/2007 4:22 PM CDT us History Conversion CHEMISTRY ORDERABLES Edited Performing Organization Address City/[facility] de Phone Number INTERFACE SYSTEM Refer to clinic/hospital department * PROLACTIN (02/04/2007 4:22 PM CDT) Pathologist [facility] PROLACTIN 14.59 ng/mL INTERFACE SYSTEM Comment: Female: Non- Reference Range 18 years - Adult = 4.79 - 23.30 ng/mL No Reference Range Established for patients less than 18 years of age..b r.br 02/04/2007 4:22 PM CDT us History Conversion CHEMISTRY ORDERABLES Edited Performing Organization Address [facility] Phone Number INTERFACE SYSTEM Refer to clinic/hospital department * RPR (02/04/2007 4:22 PM CDT) [facility] RPR NON-REACT SYED NON-REACT SYED INTERFACE SYSTEM Comment: Lab test performed by: [email or web address] [id number] [address] ESTUARDO ESPINAL 02/04/2007 4:22 PM CDT us History Conversion CHEMISTRY ORDERABLES Edited Performing Organization Address [facility] Phone Number INTERFACE SYSTEM Refer to clinic/hospital department * HEPATITIS B SURFACE ANTIGEN (02/04/2007 4:22 PM CDT) [facility] HEPATITIS B SURFACE AG NON-REACT SYED NON-REACT SYED INTERFACE SYSTEM Comment: Lab test performed by: [email or web address] [id number] [address] ESTUARDO ESPINAL 02/04/2007 4:22 PM CDT us History Conversion CHEMISTRY ORDERABLES Edited Performing Organization Address [facility] Phone Number INTERFACE SYSTEM Refer to clinic/hospital department * (ABNORMAL) HSV TYPE 1 AND 2 IGG ANTIBODY (02/04/2007 4:22 PM CDT) [facility] HSV TYPE 1 IGG >5.00(H) EIA Value [...] OF IMMUNOCOMPROMISED PATIENTS. Lab test performed by: [email or web address] [id number] [address] ESTUARDO ESPINAL 02/04/2007 4:22 PM CDT us History Conversion CHEMISTRY ORDERABLES COM Edit ed INTERFACE SYSTEM Refer to clinic/hospital department documented in this encounter Visit Diagnoses Diagnosis Other disorder of menstruation and other abnormal bleeding from female genital tract- Primary documented in this encounter Care Teams General Expeditor Relationship Specialty Start Date End Date Viry Reyna MD [address] [place] [address] PCP - General Internal Medicine 04/22/24 documented as of this encounter
--- OUTSIDE RECORDS SUMMARY | 2025-10-04 00:38 | XMS_ITS | Encounter Summary ---
Author Organization [facility] Address [address] [place] [address] Care Team Providers Care Civil Engineering Designer Name Role Phone Viry Reyna MD Primary Care Provider [phone] Encounter Details Date Type Department Care Team (Latest Contact Info) Description 11/14/2001 Outpatient Historical HIS [facility] ISIDRA Baca, Quan Burton MD NO ADDRESS ON FILE ACUTE PHARYNGITIS (Primary Dx) Social History Tobacco Use Types Packs/Day Years Used Date Smoking Tobacco: Never Assessed Comments Unknown Sex and Gender Information Value Date Recorded Sex Assigned at Not on file Legal Sex Female 3:28 AM SPECIALTY FINISHING UTILITY PERSON Gender Identity Not on file Sexual Orientation Not on file documented as of this encounter Plan of Treatment Upcoming Encounters Date Type Department Care Team (Late st Contact Info) Description 10/05/2025 10:00 AM SPECIALTY FINISHING UTILITY PERSON Office Visit [facility] at [facility] [address] [place] [address] Tarsha Watkins, ROCCO [address] [place] [address] 11/22/2025 7:30 AM SPECIALTY FINISHING UTILITY PERSON Office Visit [facility] [address] [place] [address] Tarsha Watkins, ROCCO [address] [place] [address] documented as of this encounter Visit Diagnoses Diagnosis Acute pharyngitis- Primary documented in this encounter Care Teams Civil Engineering Designer Relationship Specialty Start Date End Date Viry Reyna MD [address] [place] [address] PCP - General Internal Medicine 04/22/24 documented as of this encounter
--- OUTSIDE RECORDS SUMMARY | 2025-10-04 00:38 | XMS_ITS | Encounter Summary ---
Author Organization [facility] Address [address] [place] [address] Care Team Providers Care Orthotist/Prosthetist Name Role Phone Viry Reyna MD Primary Care Provider [phone] Encounter Details Date Type Department Care Team (Late st Contact Info) Description 11/14/2001 Outpatient Historical [facility] [address] [place] [address] [place]Olu MD [address] [place] [address] Social History Tobacco Use Types Packs/Day Years Used Date Smoking Tobacco: Never Assessed Comments Unknown Sex and Gender Information Value Date Recorded Sex Assigned at Not on file Legal Sex Female 3:28 AM MORTISING MACHINE OPERATOR Gender Identity Not on file Sexual Orientation Not on file documented as of this encounter Plan of Treatment Upcoming Encounters Date Type Department Care Team (Late st Contact Info) Description 10/05/2025 10:00 AM MORTISING MACHINE OPERATOR Office Visit [facility] [employer] [place] [address] [place] [address] Tarsha Watkins, ROCCO [address] [place] [address] 11/22/2025 7:30 AM MORTISING MACHINE OPERATOR Office Visit [facility] at [facility] [employer] [place] [address] [place] [address] Tarsha Watkins, ANP [address] [place] [address] documented as of this encounter Visit Diagnoses Not on filedocumented in this encounter Care Teams Orthotist/Prosthetist Relationship Specialty Start Date End Date Viry Reyna MD [address] [place] [address] PCP - General Internal Medicine 04/22/24 documented as of this encounter
--- OUTSIDE RECORDS SUMMARY | 2025-10-04 00:38 | XMS_ITS | Encounter Summary ---
Author Organization [facility] Address [address] [place] [address] Care Team Providers Care Hot Air Furnace Installer Repairer Name Role Phone Viry Reyna MD Primary Care Provider [phone] Encounter Details Date Type Department Care Team (Latest Contact Info) Description 08/22/1999 Outpatient Historical [facility],NON-PATIENT [place] MD [address] [facility] [address] [place] [phone] Acute pharyngitis (Primary Dx) Social History Tobacco Use Types Packs/Day Years Used Date Smoking Tobacco: Never Assessed Comments Unknown Sex and Gender Information Value Date Recorded Sex Assigned at Not on file Legal Sex Female 3:28 AM AFTER SCHOOL PROGRAM ASSISTANT Gender Identity Not on file Sexual Orientation Not on file documented as of this encounter Plan of Treatment Upcoming Encounters Date Type Department Care Team (Late st Contact Info) Description 10/05/2025 10:00 AM AFTER SCHOOL PROGRAM ASSISTANT Office [facility] [employer] [place] [address] [place] [address] Tarsha Watkins ANP [address] [place] [address] 11/22/2025 7:30 AM AFTER SCHOOL PROGRAM ASSISTANT Office Visit [facility] [employer] [place] [address] [place] [address] Tarsha Watkins, ROCCO [address] [address] documented as of this encounter Visit Diagnoses Diagnosis Acute pharyngitis- Primary documented in this encounter Care Teams Hot Air Furnace Installer Repairer Relationship Specialty Start Date End Date Viry Reyna MD [address] [place] [address] PCP - General Internal Medicine 04/22/24 documented as of this encounter
--- OUTSIDE RECORDS SUMMARY | 2025-10-04 00:38 | XMS_ITS | Clinical Summary ---
Author Organization [facility] Address [facility] [place] [address] Care Team Providers Care Editor Department Name Role Phone None, Provider MD Primary [...] Department Care Team Description 09/13/2025 7:55 AM BLENDER MACHINE OPERATOR - 09/13/2025 12:20 PM BLENDER MACHINE OPERATOR Emergency [facility] Emergency [place] [address] Maria Ines Grace MD Vaginal Bleeding Discharge [...] Sex Assigned at Female 09/13/2025 8:02 AM BLENDER MACHINE OPERATOR Legal Sex Female 6:23 PM CDT Gender Identity Not on file Sexual Orientation Not on file Last Filed Vital Signs Vital Sign Reading Time Taken Comments Blood Pressure 117/70 09/13/2025 11:38 AM BLENDER MACHINE OPERATOR Pulse 74 09/13/2025 11:38 AM BLENDER MACHINE OPERATOR Temperature 36.8 C (98.3 F) 09/13/2025 7:49 AM BLENDER MACHINE OPERATOR Respiratory Rate 18 09/13/2025 11:38 AM BLENDER MACHINE OPERATOR Oxygen Saturation 100% 09/13/2025 11:38 AM BLENDER MACHINE OPERATOR Inhaled Oxygen Concentration - - Weight 86.2 kg (190 lb) 09/13/2025 7:49 AM BLENDER MACHINE OPERATOR Height 162.6 cm (5' 4) 09/13/2025 7:49 AM BLENDER MACHINE OPERATOR Body Mass Index 32.61 09/13/2025 7:49 AM BLENDER MACHINE OPERATOR Plan of Treatment Health Maintenance Due Date [...] OB COMP TA+TV STAT 09/13/2025 10:18 AM BLENDER MACHINE OPERATOR CHORIONIC GONADOTROPIN HCG QL STAT 09/13/2025 8:13 AM BLENDER MACHINE OPERATOR BASIC METABOLIC PANEL STAT 09/13/2025 8:13 AM BLENDER MACHINE OPERATOR CBC W/DIFF AUTOMATED STAT 09/13/2025 8:13 AM BLENDER MACHINE OPERATOR from Last 3 Months Results * US PELVIC NON OB COMP TA+TV (09/13/2025 10:18 AM BLENDER MACHINE OPERATOR) Anatomical Region Laterality Modality Pelvis Ultrasound 09/13/2025 11:0 6 AM BLENDER MACHINE OPERATOR Impressions 09/13/2025 11:20 AM BLENDER MACHINE OPERATOR IMPRESSION: PROBABLE DEBRIS WITHIN THE ENDOMETRIAL CANAL FROM THE VAGINAL BLEEDING. NO DEFINITE UTERINE OR ENDOMETRIAL MASS. IF SYMPTOMS PERSIST, OR CONCERN WARRANTS, DIRECT ENDOMETRIAL INSPECTION AND POTENTIAL SAMPLING MAY BE INDICATED. OTHERWISE UNREMARKABLE TRANSABDOMINAL AND TRANSVAGINAL ULTRASOUND OF THE PELVIS. Referred By: Interpreted By: Ji Duncan MD, 09/13/2025 11:06 AM Narrative 09/13/2025 11:20 AM BLENDER MACHINE OPERATOR [address] [address] EXAM: US PELVIC NON OB COMP TA+TV [...] Procedure Note Ji Duncan MD - 09/13/[address], [place] [address] EXAM: US PELVIC NON OB COMP TA+TV [...] (ABNORMAL) BASIC METABOLIC PANEL (09/13/2025 8:13 AM BLENDER MACHINE OPERATOR) GLUCOSE 73 70 - 99 MG/DL 09/13/2025 8:56 AM BLENDER MACHINE OPERATOR [facility] BUN 16 7 - 18 MG/DL 09/13/2025 8:56 AM [facility] CREATININE S/P/B 0.76 0.55 - 1.02 MG/DL 09/13/2025 8:56 AM [facility] SODIUM S/P/B 140 136 - 145 MMOL/L 09/13/2025 8:56 AM [facility] POTASSIUM S/P/B 4.1 3.5 - 5.1 MMOL/L 09/13/2025 8:56 AM BLENDER MACHINE OPERATOR [facility] CHLORIDE S/P/B 111 97 - 115 MMOL/L 09/13/2025 8:56 AM [facility] CO2 27.6 21 - 32 MMOL/L 09/13/2025 8:56 AM [facility] CALCIUM S/P/B 8.5 8.5 - 10.1 MG/DL 09/13/2025 8:56 AM [facility] ANION GAP 1.4(L) 2 - 10 MMOL/L 09/13/2025 8:56 AM [facility] BUN CREATININE RATIO 20.9 6 - 26 09/13/2025 8:56 AM [facility] GFR ESTIMATE >90 >90 ML/MIN/1.7 3 M2 09/13/2025 8:56 AM [facility] Comment: NOTE: eGFR is not calculated for patients <18 years of age or gender unknown. This is an estimated GFR calculation using the new CKD EPI creatinine equation without race and so does not require a correction factor for race. This estimated GFR should not be used for calculating drug doses. 09/13/2025 8:13 AM BLENDER MACHINE OPERATOR us Maria Ines Grace MD LABORATORY Final Result [facility] [address] [place] [address], [place] [phone] * Qualitative HCG (09/13/2025 8:13 AM BLENDER MACHINE OPERATOR) PREG SCREEN-SERUM NEGATIVE 09/13/2025 8:52 AM BLENDER MACHINE OPERATOR [facility] 09/13/2025 8:13 AM BLENDER MACHINE OPERATOR us Maria Ines Grace MD LABORATORY Final Result [facility] [address] [place] [address], * (ABNORMAL) CBC W/DIFF AUTOMATED (09/13/2025 8:13 AM BLENDER MACHINE OPERATOR) [facility] WBC 4.78 4.5 - 11.0 x10'3/uL 09/13/2025 8:25 AM [facility] RBC 3.18(L) 4.20 - 5.40 x10'6/uL 09/13/2025 8:25 AM [facility] HGB 8.3(L) 12.0 - 16.0 G/DL 09/13/2025 8:25 AM [facility] HCT 25.9(L) 38.0 - 48.0 % 09/13/2025 8:25 AM [facility] MCV 81.4 81.0 - 99.0 FL 09/13/2025 8:25 AM [facility] MCH 26.1(L) 27.0 - 31.0 PG 09/13/2025 8:25 AM [facility] MCHC 32.0 32.0 - 36.0 G/DL 09/13/2025 8:25 AM [facility] RDW 14.8(H) 11.5 - 14.5 % 09/13/2025 8:25 AM [facility] PLT 237 130 - 400 x10'3/uL 09/13/2025 8:25 AM [facility] MPV 10.5 9.3 - 12.2 FL 09/13/2025 8:25 AM [facility] DIFFERENTIAL TYPE AUTOMATED DIFFERENTIAL 09/13/2025 8:25 AM [facility] NEUTROPHILS % 72.8 % 09/13/2025 8:25 AM BLENDER MACHINE OPERATOR [facility] LYMPHOCYTES % 18.4 % 09/13/2025 8:25 AM BLENDER MACHINE OPERATOR [facility] MONOCYTES % 6.9 % 09/13/2025 8:25 AM [facility] EOSINOPHILS 1.3 % 09/13/2025 8:25 AM BLENDER MACHINE OPERATOR [facility] BASOPHILS 0.2 % 09/13/2025 8:25 AM BLENDER MACHINE OPERATOR [facility] IMMATURE GRANS % 0.4 % 09/13/20 8:25 AM BLENDER MACHINE OPERATOR [facility] ABS. NEUTROPHILS 3.48 1.80 - 7.70 x10'3/uL 09/13/2025 8:25 AM [facility] ABS. LYMPHOCYTES 0.88(L) 1.00 - 4.80 x10'3/uL 09/13/2025 8:25 AM BLENDER MACHINE OPERATOR [facility] ABS. MONOCYTES 0.33 0.24 - 0.86 x10'3/uL 09/13/2025 8:25 AM BLENDER MACHINE OPERATOR [facility] ABS. EOSINOPHILS 0.06 0.04 - 0.36 x10'3/uL 09/13/2025 8:25 AM [facility] ABS. BASOPHILS 0.01 0.01 - 0.08 x10'3/uL 09/13/2025 8:25 AM BLENDER MACHINE OPERATOR [facility] ABS. IMMATURE GRANULOCYTES 0.02 0.00 - 0.49 x10'3/uL 09/13/2025 8:25 AM [facility] 09/13/2025 8:13 AM BLENDER MACHINE OPERATOR us Maria Ines Grace MD LABORATORY Final Result [facility] [address] [place] [address], from Last 3 Months Insurance [employer] Care Teams Editor Department Relationship Specialty Start Date End Date None, Provider, PCP - General UNKNOWN PHYSICIAN SPECIALTY 09/13/25
--- OUTSIDE RECORDS SUMMARY | 2025-10-04 00:38 | XMS_ITS | Clinical Summary ---
Author Organization [facility] Address [address] [place] [address] Care Team Providers Care System Support Specialist Name Role Phone Viry Reyna MD Primary Care Provider [phone] Allergies No known active allergies Medications levothyroxine 88 mcg tablet Take 1 Tablet (88 mcg) by mouth daily in the morning. 90 Tablet 1 5 Active tirzepatide, weight loss, (Zepbound) 5 mg/0.5 mL Pen InjectorIndicat ions:Morbid obesity with body mass index of 40.0-49.9 (CMS/HCC) Inject 0.5 mL (5 mg) by subcutaneous injection every 7 days. 6 mL 1 5 Active buPROPion HCL (Wellbutrin XL) 300 mg Extended Release 24 hour tabletIndicatio ns:Current moderate episode of major depressive disorder without prior episode (CMS/HCC) Take 1 Tablet (300 mg) by mouth daily in the morning. 90 Tablet 5 Active ferrous sulfate 325 mg (65 mg iron) tablet Take 325 mg by mouth every other day. 5 Active tranexamic acid (LYSTEDA) 650 mg Tablet tablet TAKE 2 TABLETS BY MOUTH THREE TIMES DAILY FOR 5 DAYS 5 Active Active Problems Problem Noted Date Diagnosed Date Obesity (BMI 30.0-34.9) 08/23/2025 Irregular menses 08/23/2025 Morbid obesity with body mass index of 40.0-49.9 06/07/2025 Current moderate episode of major depressive disorder without prior episode 01/21/2024 Acquired hypothyroidism 07/25/2023 Resolved Problems Problem Noted Date Diagnosed Date Resolved Date Thyroid function test abnormal 07/02/2023 09/17/2023 Overview (07/02/2023): Plan repeat with OV 07/2023 DUB (dysfunctional uterine bleeding) 05/04/2016 06/07/2025 Cigarette dependence 05/04/2016 023 Encounters Date Type Department Care Team Description 09/23/2025 Results Follow-Up [place] [address] [facility] [place] [place] [address] Viry Reyna MD CBC WITH DIFFERENTIAL, FERRITIN, IRON, TIBC, AND PERCENT SATURATION 09/22/2025 9:30 AM ASSISTANT BRAND MANAGER Office Visit [place] [address] [employer] [facility] [place] [place] [address] Viry Reyna MD Vaginal bleeding (Primary Dx); Acute blood loss anemia 09/21/2025 Telephone [facility] [place] [address] [address] Tarsha Watkins ANP fmla 09/14/2025 External Device Data STL ABSTRACTION Provider, Abstract 09/09/2025 Telephone [place] [address] [place] [address] Tasrha Watkins ANP Vaginal Bleeding 09/08/2025 External Device Data STL ABSTRACTION Provider, Abstract 09/07/2025 External Device Data STL ABSTRACTION Provider, Abstract 08/31/2025 External Device Data STL ABSTRACTION Provider, Abstract 08/23/2025 7:30 AM CDT Office Visit [place] [address] [employer] [facility] [place] [place] [address] Tarsha Watkins ANP Obesity (BMI 30.0-34.9) (Primary Dx); Current moderate episode of major depressive disorder without prior episode (CMS/HCC); Acquired hypothyroidism; Irregular menses from Last 3 Months Immunizations Immunization Administration Dates Next Due (ADACEL/BOOSTRIX)(10 YR UP) TDAP VACCINE, 0.5ML, IM 02/18/2025 Family History Medical History Relation Name Comments No Known Problems Brother Diabetes Father Heart Surgery Father Neuropathy Father Unknown Maternal Grandfather Unknown Maternal Grandmother Heart defect Mother Other Mother stomach No Known Problems Paternal Grandfather Diabetes Paternal Grandmother Relation Name Status Comments Brother Alive Father Alive Maternal Grandfather Maternal Grandmother Mother Alive Paternal Grandfather Alive Paternal Grandmother Social History Tobacco Use Types Packs/Day Years Used Date Smoking Tobacco: Former Cigarettes 0 Q uit: 2020 Smokeless Tobacco: Never Alcohol Use Standard Drinks/Week Comments No 0 (1 standard drink = 0.6 oz pur e alcohol) Comments No Sex and Gender Information Value Date Recorded Sex Assigned at Not on file Legal Sex Female 3:28 AM ASSISTANT BRAND MANAGER Gender Identity Not on file Sexual Orientation Not on file Last Filed Vital Signs Vital Sign Reading Time Taken Comments Blood Pressure 118/68 09/22/2025 9:23 AM ASSISTANT BRAND MANAGER Pulse 61 09/22/2025 9:23 AM ASSISTANT BRAND MANAGER Temperature 36.8 C (98.2 F) 09/22/2025 9:23 AM ASSISTANT BRAND MANAGER Respiratory Rate 18 09/22/2025 9:23 AM ASSISTANT BRAND MANAGER Oxygen Saturation 100% 09/22/2025 9:23 AM ASSISTANT BRAND MANAGER Inhaled Oxygen Concentration - - Weight 88 kg (194 lb) 09/22/2025 9:23 AM ASSISTANT BRAND MANAGER Height 162.6 cm (5' 4) 09/22/2025 9:23 AM ASSISTANT BRAND MANAGER Body Mass Index 33.3 09/22/2025 9:23 AM ASSISTANT BRAND MANAGER Plan of Treatment Upcoming Encounters Date Type Department Care Team (Late st Contact Info) Description 10/05/2025 10:00 AM ASSISTANT BRAND MANAGER Office Visit [facility] [employer] [place] [address] [place] [address] Tarsha Watkins, ROCCO [address] [place] [address] 11/22/2025 7:30 AM ASSISTANT BRAND MANAGER Office Visit [facility] [employer] [place] [address] [address] Tarsha Watkins, ANP [address] [place] [address] Health Maintenance Due Date Last Done Comments HEPATITIS B VACCINES (1 of 3 - 19+ 3-dose series) 2004 HPV/Cotest (21-29) 2006 HPV VACCINES (1 - 3-dose SCDM series) 2012 CERVICAL CANCER SCREENING 2015 HPV/Cotest (30-65) 2015 PAP SMEAR 2015 BREAST CANCER SCREENING 2025 INFLUENZA VACCINE (#1) 2025 Pre-Diabetes and Diabetes Screening 01/20/202701/20, 06/28/2023 DTAP/TDAP/TD VACCINES (2 - Td or Tdap) 02/18/2035 Preventative Visit- Commercial Completed 02/18/2025 , 12/31/2001 Procedures Procedure Name Priority Date/Time Associated Diagnosis Comments IRON, TIBC, AND PERCENT SATURATION Routine 09/22/2025 10:18 AM ASSISTANT BRAND MANAGER Acute blood loss anemia FERRITIN Routine 09/22/2025 10:18 AM ASSISTANT BRAND MANAGER Acute blood loss anemia CBC WITH DIFFERENTIAL Routine 09/22/2025 10:18 AM ASSISTANT BRAND MANAGER Acute blood loss anemia HEMOGLOBIN A1C Routine 01/21/2024 8:05 AM CDT Morbid obesity with body mass index of 40.0-49.9 (CMS/HCC) from Last 3 Months or Most Recently Relevant to Health Maintenance Results * (ABNORMAL) IRON, TIBC, AND PERCENT SATURATION (09/22/2025 10:18 AM ASSISTANT BRAND MANAGER) IRON 20(L) 40 - 190 mcg/dL [facility] TIBC 362 250 - 450 mcg/dL (calc) [facility] IRON % SATURATION 6(L) 16 - 45 % (calc) [facility] Comment: Test Performed at: [facility] [address] [address] Kiersten Ruelas MD Blood 09/22/2025 10:1 8 AM ASSISTANT BRAND MANAGER 09/22/2025 10:02 PM ASSISTANT BRAND MANAGER us Viry Reyna MD CHEMISTRY ORDERABLES Final Res ult [facility] [phone] [facility] [address] [place] [address] * (ABNORMAL) CBC WITH DIFFERENTIAL (09/22/2025 10:18 AM ASSISTANT BRAND MANAGER) WBC 4.0 3.8 - 10.8 Thousand/ uL [facility] RBC 2.52(L) 3.80 - 5.10 Million/u L [facility] HEMOGLOBIN 6.3(L) 11.7 - 15.5 g/dL [facility] Comment: Verified by repeat analysis. HEMATOCRIT 21.6(L) 35.0 - 45.0 % [facility] MCV 85.7 80.0 - 100.0 fL [facility] MCH 25.0(L) 27.0 - 33.0 pg [facility] [...] 14.5 11.0 - 15.0 % [facility] PLATELETS 303 140 - 400 Thousand/ uL [facility] MPV 11.0 7.5 - 12.5 fL [facility] NEUTROPHIL ABSOLUTE 2,736 1,500 - 7,800 cells/uL [facility] LYMPHOCYTE ABSOLUTE 920 850 - 3,900 cells/uL [facility] MONOCYTE ABSOLUTE 292 200 - 950 cells/uL [facility] EOSINOPHIL ABSOLUTE 40 15 - 500 cells/uL [facility] BASOPHILS ABSOLUTE 12 0 - 200 cells/uL [facility] NEUTROPHIL 68.4 % [facility] LYMPHOCYTES 23.0 % [facility] MONOCYTE 7.3 % [facility] EOSINOPHILS 1.0 % [facility] BASOPHILS 0.3 % [facility] COMMENT HEMATOLOGY [facility] Comment: Review of peripheral smear confirms automated results. Anisocytosis 1 + Ovalocytes 1 + Polychromasia 1 + Review of the peripheral smear reveals adequate numbers of platelets. Test Performed at: [facility] [address] [place] [address] Kiersten Ruelas Blood 09/22/2025 10:1 8 AM ASSISTANT BRAND MANAGER 09/22/2025 10:02 PM ASSISTANT BRAND MANAGER Viry Reyna MD HEMATOLOGY ORDERABLES Final Re sult Performing Organization Address City/[facility]/ZIP Code Phone Number [facility] [phone] [facility] [place] [address] [place] [address] * FERRITIN (09/22/2025 10:18 AM ASSISTANT BRAND MANAGER) FERRITIN 55 16 - 154 ng/mL [facility] Comment: Test Performed at: [facility] [address] [place] [address] KendraEmerita Ruelas MD Blood 09/22/2025 10:1 8 AM ASSISTANT BRAND MANAGER 09/22/2025 10:02 PM ASSISTANT BRAND MANAGER Viry Reyna MD CHEMISTRY ORDERABLES Final Res ult Performing Organization Address City/State/ZIP Co az Phone Number [facility] [phone] [facility] [address] [place] [address] * HEMOGLOBIN A1C (01/21/2024 8:05 AM CDT) HEMOGLOBIN A1C 5.3 <5.7 % of total Hgb [facility] Comment: For the purpose of screening for the presence of diabetes: <5.7% Consistent with the absence of diabetes 5.7-6.4% Consistent with increased risk for diabetes (prediabetes) > or =6.5% Consistent with diabetes This assay result is consistent with a decreased risk of diabetes. Currently, no consensus exists regarding use of hemoglobin A1c for diagnosis of diabetes in children. According to [place] Diabetes Association (ADA) guidelines, hemoglobin A1c <7.0% represents optimal control in non- diabetic patients. Different metrics may apply to specific patient populations. Standards of Medical Care in Diabetes(ADA). ESTIMATED AVERAGE GLUCOSE (MG/DL) 105 mg/dL [facility] ESTIMATED AVERAGE GLUCOSE (MMOL/L) 5.8 mmol/L [facility] Comment: This test was performed on the [employer] [id number] platform. Please be advised that [facility] will move hemoglobin A1c testing to the [employer] platform soon. In general, direct comparison of the results from different platforms is not recommended. Test Performed at: [facility] [address] [place] [address] Kiersten Ruelas MD Blood 01/21/2024 8:05 AM CDT 01/22/2024 4:15 AM CDT us Tarsha Watkins [facility] CHEMISTRY ORDERABLES Final R esult [facility] [phone] [facility] [address] [place] [address] from Last 3 Months or Most Recently Relevant to Health Maintenance Insurance [facility] OPEN ACCESS ALLEGIANCE OPEN ACCESS Care Teams System Support Specialist Relationship Specialty Start Date End Date Viry Reyna MD [address] [place] [address] [place] [address] PCP - General Internal Medicine 04/22/24
--- OUTSIDE RECORDS SUMMARY | 2025-10-04 00:38 | XMS_ITS | Encounter Summary ---
Author Organization [facility] Address [address] [place] [address] Care Team Providers Care Counterintelligence/Humint Specialist Name Role Phone Viry Reyna MD Primary Care Provider [phone] Encounter Details Date Type Department Care Team (Latest Contact Info) Description 02/22/2003 Outpatient Historical [facility], [address] Angelo Quiroga MD [address] [facility] [address] [place] [phone] SCREENING MAL NEOP-CERVIX (Primary Dx) Social History Tobacco Use Types Packs/Day Years Used Date Smoking Tobacco: Never Assessed Comments Unknown Sex and Gender Information Value Date Recorded Sex Assigned at Not on file Legal Sex Female 3:28 AM TRACK FITTER Gender Identity Not on file Sexual Orientation Not on file documented as of this encounter Plan of Treatment Upcoming Encounters Date Type Department Care Team (Late st Contact Info) Description 10/05/2025 10:00 AM TRACK FITTER Office Visit [facility] [employer] [facility] [address] [address] Tarsha Watkins ANP [address] [place] [address] 11/22/2025 7:30 AM TRACK FITTER Office Visit [facility] [employer] [place] [address] [place] [address] Tarsha Watkins, ROCCO [address] [place] [address] documented as of this encounter Visit Diagnoses Diagnosis Screening for malignant neoplasm of the cervix- Primary documented in this encounter Care Teams Counterintelligence/Humint Specialist Relationship Specialty Start Date End Date Viry Reyna MD [address] [email or web address] [address] PCP - General Internal Medicine 04/22/24 documented as of this encounter
[2025-10-04 07:35] VITALS: BP 131/71; PULSE 67; RESP 18; TEMP 36.3; O2SAT 100
--- NOTE | 2025-10-04 07:36 | WPDHPUPDATE1 ---
History and Physical Update Update Date/Time: 10/04/25 07:36 History and Physical has been reviewed, including an updated exam of the patient. There are NO changes in the patient's condition. Risks, benefits, and alternatives have been discussed and questions answered. Patient agrees to proceed with procedure.
--- NOTE | 2025-10-04 07:36 | PM.HPGS ---
History of Present Illness History of Present Illness Consent: Risks, benefits, and alternatives have been discussed and questions answered. Patient agrees to proceed with procedure. Chief complaint: menorrhagia, abnormal uterine bleeding Narrative: Emy Couch is a 40 year old female with prolonged bleeding. Patient states she was bleeding most days the past year. Patient had not been seen since 2021 in the office and presented in September of 2025. Pelvic ultrasound is basically normal with no discrete lesions. Hemoglobin was initially 8.3. Patient had it checked with her primary care physician and was noted to be 6.6. Patient was admitted for outpatient transfusion of 2units packed red blood cells. Most recent hemoglobin on September 27, 2025 was 10.0. It was recommended to undergo D&C hysteroscopy for further evaluation. Risks of infection, bleeding, perforation and possible pathology are reviewed. Patient voices understanding and agrees to proceed. [facility] Past Medical History Medical History (Updated 10/04/25 @ 07:58 by Chloé Coreas MD) Hypothyroid Surgical History Surgical History (Updated 10/04/25 @ 07:56 by Chloé Coreas MD) History of tonsillectomy Social History Social History Smoking packs per day: 1.5 Smoking cigarettes per day: 30.0 Years smoked: 4.5 Smoking pack-years: 6.75 Smoking status: Former smoker Smoking end date: 06/11/20 Living arrangements: with friend(s) Additional living arrangements comments: S/O Spiritual care concerns: No Meds Home Medications and Allergies Home Medications ?Medication ?Instructions ?Recorded ?Confirmed ?Type bupropion HCl 300 mg 24 hr tablet, 300 mg PO DAILY 09/22/25 10/04/25 History extended release ferrous sulfate 325 mg (65 mg 325 mg PO EVERY OTHER DAY 09/22/25 10/04/25 History iron) tablet (FeroSul) levothyroxine 88 mcg tablet 88 mcg PO DAILY 09/22/25 10/04/25 History tirzepatide (weight loss) 5 mg/0.5 5 mg subcut WEEKLY 09/22/25 10/04/25 History mL subcutaneous pen injector (Zepbound) tranexamic acid 650 mg tablet 1,300 mg PO TID 09/22/25 10/04/25 History Allergies Allergy/AdvReac Type Severity Reaction Status Date / Time No Known Allergies Allergy Verified 10/04/25 06:21 Vital Signs Vital Signs - 24 hr 10/04/25 06:00 Temperature 97.1 F L Pulse Rate 56 L Respiratory Rate 16 Blood Pressure 112/58 L Pulse Oximetry 100 Oxygen Delivery Room Air Exam Const: General: healthy appearing and alert Orientation/consciousness: patient oriented x3 Resp: Effort & Inspection: normal respiratory effort GI: GI Palp: Yes Soft to palpation, No Tenderness to palpation present (GI) and No Palpable mass present : External Female Exam: normal external appearance Speculum Exam - Vagina: normal appearance of the vagina and normal vaginal discharge Speculum Exam - Cervix: normal appearance of the cervix Bimanual exam- vagina & uterus: uterine size normal and consistency normal Bimanual Exam- Adnexa, other: normal adnexae and No adnexal tenderness Neuro: General: patient oriented x3 Assessment and Plan Assessment and plan (1) Menorrhagia: Code(s): N92.0 - Excessive and frequent menstruation with regular cycle Status: Acute Assessment and Plan: proceed with D&C hysteroscopy
--- NOTE | 2025-10-04 07:49 | SUR.PREOP ---
0749 ANY DOCUMENTAION PRIOR TO THIS TIME WAS ENTERED IN ERROR
[2025-10-04] MEDS: ACETAMINOPHEN 500 MG TABLET 1000 MG PO (07:55)
[2025-10-04] MEDS: LACTATED RINGERS 1,000 ML 30 ML IV CONT (08:00)
[2025-10-04 08:12] LABS: Hematocrit 33.0 % (37.0-47.0); Hemoglobin 9.8 g/dL (12.0-15.0)
--- NOTE | 2025-10-04 08:25 | P.PNAN_ITS ---
Anes - Initial Pre Proc Eval Procedure: Operation Date: 10/04/25 09:30 Proposed Procedures p Hysteroscopy Dilation and Curettage - Chloé Coreas MD Date/Time: 10/04/25 08:25 Surgeon: Chloé Coreas MD Pre Op Diagnosis: menorrhagia, abnormal uterine bleeding Patient Data Age: 40 Gender: F Height: 1.63 m Weight: 86.2 kg Last Vital Signs Temp 36.3 C L 10/04/25 07:35 Pulse 67 10/04/25 07:35 Resp 18 10/04/25 07:35 BP 131/71 10/04/25 07:35 Pulse Ox 100 10/04/25 07:35 O2 Del Method Room Air 10/04/25 07:35 Allergies Allergy/AdvReac Type Severity Reaction Status Date / Time No Known Allergies Allergy Verified 10/04/25 06:21 Home Medications ?Medication ?Instructions ?Recorded ?Confirmed ?Type bupropion HCl 300 mg 24 hr tablet, 300 mg PO DAILY 11/0410/04/25 History extended release ferrous sulfate 325 mg (65 mg 325 mg PO EVERY OTHER DA Y 09/22/25 10/04/25 History iron) tablet (FeroSul) levothyroxine 88 mcg tablet 88 mcg PO DAILY 09/22/25 1 12/04/24 History tirzepatide (weight loss) 5 mg/0.5 5 mg subcut WEEKLY 09/22/25 10/04/25 History mL subcutaneous pen injector (Zepbound) tranexamic acid 650 mg tablet 1,300 mg PO TID 09/22/25 10/04/25 History Laboratory Tests 10/04/25 08:06 Hgb 9.8 L D g/dL (12.0-15.0) Hct 33.0 L % (37.0-47.0) Patient hx anesthesia problems: none Family hx anesthesia problems: none Results Review: All pre-operative results and documents have been reviewed as part of the pre- operative evaluation. [facility] Past Medical History Medical History Hypothyroid Surgical History Surgical History History of tonsillectomy Social History Social History Smoking packs per day: 1.5 Smoking cigarettes per day: 30.0 Years smoked: 4.5 Smoking pack-years: 6.75 Smoking status: Former smoker Smoking end date: 06/11/20 Living arrangements: with friend(s) Additional living arrangements comments: S/O Spiritual care concerns: No Anes - Eval Final PreProcedure Day of Procedure 10/04/25 08:25 Patient weight: obese Heart: regular rate and rhythm Lungs: clear to auscultation Airway: Mallampati scale class II Neurological: alert and oriented Last oral intake: >/= 8 hours ASA classification: II Emergent: no Anesthetic plan: proceed Anesthesia type and monitoring: general GIVS and standard monitoring Results Review: All pre-operative results and documents have been reviewed as part of the pre-o perative evaluation. Informed Consent: The patient's anesthetic plan and its attendant risks and benefits were discussed with the patient/family/POA. Questions were solicited and answers provided to the satisfaction of the patient/family/POA.
[2025-10-04] MEDS: KETOROLAC 30 MG/ML VIAL (*BKC) IV PUSH (08:50)
--- NOTE | 2025-10-04 08:57 | S_PTH ---
PATIENT: Emy Couch LOC: [facility] U#:[id number] AGE/SX: 40/F ROOM: RE10/04/[address]: Chloé Coreas MD : 1985 BED: DIS: 10/04/2025 SPEC #: [id number] RECD: 10/04/25 09:55 STATUS: DENNIS REQ #: [id number] SAMANTHA: 10/04/25 08:[address]: Chloé Coreas DEPT: [facility] Surgical RECD BY: Erlnida Kirby ENTERED: 10/04/25 09:55 SP TYPE: Surgical OTHR DR: Tarsha Watkins, LAPPING MACHINE SET UP OPERATOR Tissues: A - Endometrial Curettings Procedures: Hematoxylin and Eosin Stain Gross and Microscopic Level 4
--- NOTE | 2025-10-04 09:01 | W.PM.PROC2 ---
Procedure Note - Detailed Date of Procedure 10/04/25 Pre-op Diagnosis menorrhagia, abnormal uterine bleeding Post-op Diagnosis Same Procedure Performed D&C hysteroscopy Surgeon Chloé Coreas MD Anesthesia MAC Findings The uterus sounds to 9cm and appears grossly secretory. Some areas appear to have possible polyps. Description of Procedure The patient was taken to the operating room and placed under anesthesia in the dorsal lithotomy position. She was prepped and draped in the usual sterile fashion. [place] speculum was placed in the vagina and the cervix grasped on the anterior lip with tenaculum. The uterus is sounded to 9 cm. The diagnostic hysteroscope was placed and with the above-stated findings the Aveta resection device was opened and placed. The endometrium is resected using the resection device. The instrument was then removed. The endometrium was curetted with a sharp curette until a good uterine cry was noted in all areas. Instruments are removed. Sponge, needle, and instrument counts are correct per the OR staff. The patient was taken to recovery in stable condition. Estimated Blood Loss 5 Drains No Packing No Pathology Yes (Endometrial curettings and shavings) Complications No immediate complications Condition Stable Disposition PACU
[2025-10-04 09:03] VITALS: BP 111/59; PULSE 74; RESP 14; O2SAT 100
[2025-10-04 09:30] VITALS: BP 100/63; PULSE 70; O2SAT 97
[2025-10-04 10:00] VITALS: BP 108/55; PULSE 57
[2025-10-04 11:52] LABS: BEDSIDEPREGUCG Negative (Negative)
== END 2025-10-04 10:25 | disposition home or self-care (01) ==
PROVIDERS: Anesthesiology; PCP Nurse Practitioner Adult Health; Visit Provider Obstetrics & Gynecology Gynecology
PROC: 0U5B8ZZ Destruction of Endometrium, Via Natural or Artificial Opening Endoscopic (ICD-10-PCS; CPT 58563; principal; 2025-10-04 09:30)
DX: N92.0 Excessive and frequent menstruation with regular cycle (principal); E03.9 Hypothyroidism, unspecified; E66.9 Obesity, unspecified; Z68.32 Body mass index [BMI] 32.0-32.9, adult; Z79.85 Long-term (current) use of injectable non-insulin antidiabetic drugs; Z98.890 Other specified postprocedural states; Z87.891 Personal history of nicotine dependence
CPT/HCPCS: 58558; 36415; 85014; 85018; 88305; A9270; J1100; J1885; J2003; J2250; J2405; J2704; J3010; J7120